=== PATIENT | female | born 1955 | race Caucasian/White ===

== ENCOUNTER 2016-09-30 10:48 | Inpatient (IN) | payer MEDICARE, OTHER ==
--- NOTE | ~2016-09-30 | CO ---
Unit #: [id number] #: [id number] Patient: WOJCIECH CHAMBERS [id number] [facility]. [place], [place] [address] [id number] I MR#: [id number] NAME: WOJCIECH CHAMBERS ROOM: 338 Age: 61 Sex: F Admission Date: 09/30/2016 : 1955 Attending Physician: Mark Aragon M.D. Primary Care Physician: Mark Aragon M.D. Consultation Date: 10/01/2016 CONSULTATION REPORT HISTORY OF PRESENT ILLNESS Ms. Chambers is a 61-year-old white female, who is a normal patient of Dr. Davian Landis. She was admitted on this occasion for anemia and transfusion. She is an end-stage renal patient and is followed by Dr. June. She has had significant chronic obstructive pulmonary disease in the past, but is fairly well compensated at this time. She reports no hemoptysis, hoarseness, weight loss, or sputum production. PAST MEDICAL HISTORY Significant for end-stage renal failure, severe left ventricular dysfunction, mitral regurgitation, hypertension, hyperlipidemia, pulmonary hypertension, chronic obstructive pulmonary disease, and obstructive sleep apnea. PAST SURGICAL HISTORY She has had cataracts, tonsillectomy, hysterectomy, bilateral knee replacements, and left AV shunt. SOCIAL HISTORY She does have a positive smoking history, but does not drink or use illicit substances. ALLERGIES She has allergies to penicillin, prednisone, Actos, Niaspan, Pravachol, Prevacid, glipizide, Lescol, Lipitor, Relafen, Welchol, Zocor, and Fosamax. MEDICATIONS Current home medications are not listed at this time. REVIEW OF SYSTEMS Significant for shortness of breath, but no chest pain, nausea, vomiting, or syncope. PHYSICAL EXAMINATION GENERAL: She is in no acute distress. She appears extremely weak and chronically ill. VITAL SIGNS: Her blood pressure is 105/61, pulse 108, and room air sats are 93%. HEAD AND NECK: Significant for pale mucous membranes. Pupils are round and reactive to light. Sclerae nonicteric. There is no supraclavicular or cervical adenopathy. Trachea is midline. Thyroid is small. CHEST: Shows increased AP diameter with bilateral rales. CARDIAC: There is systolic murmur with regular rate and rhythm. ABDOMEN: Soft, nontender, and nondistended. Unit #: [id number] #: [id number] Patient: WOJCIECH CHAMBERS EXTREMITIES: Showed edema. Joints were not inflamed or swollen. There is no significant rashes on the skin or ulceration. NEUROLOGIC: She is awake, alert, and oriented and showed no gross focal neurologic defects. DIAGNOSTIC STUDIES LABORATORY RESULTS: Her white count was 5.4, hemoglobin 6.3, and hematocrit 19. Sodium 136, potassium 4.3, chloride 100, CO2 of 28, glucose 104, BUN of 36, creatinine 3.5. IMAGING STUDIES: Chest x-ray is pending at this time. IMPRESSION AND PLAN Fairly well-compensated chronic obstructive pulmonary disease. We will plan on checking an x-ray. Providing inhaled bronchodilators and supplemental oxygen. The patient will be followed by Dr. Landis on 10/02/2016. Thank you very much for allowing us to participate in the care. Dictated by... Aj Milner/ailyn TD: 10/01/2016 18:03 JOB #: [id number] CONSULTATION REPORT Page 1 of 1 X Gagandeep Solorio MD X CONSULTATION REPORT
--- NOTE | ~2016-09-30 | HP ---
Unit #: [id number] #: [id number] Patient: WOJCIECH JIANG [id number] [place], [place] [address] [id number] I MR#: [id number] NAME: WOJCIECH JIANG ROOM: 78909 Age: 61 Sex: F Admission Date: 09/30/2016 : 1955 Attending Physician: Mark Aragon M.D. Primary Care Physician: Mark Aragon M.D. HISTORY AND PHYSICAL HISTORY OF PRESENT ILLNESS The patient is a 61-year-old white female with a history of type one diabetes mellitus, hypertension, hyperlipidemia, coronary artery disease, COPD, AFib, anticoagulation, end-stage renal disease on hemodialysis Sunday, Sunday and Sunday. Apparently, at hemodialysis, she was noted to have a protime of over 12 on 09/25/16 and her Coumadin was held. She then presented to my office this morning, complained of being cold, weak, was obviously quite pale, having black tarry stools. Protime in the office was over 6 and she was directed to the hospital thinking she need to have a STAT CBC and possible transfusion. Sure enough here, her hemoglobin was 5.2. She has been typed, crossed and matched for two units, given vitamin K IM and Protonix 80 mg IV and is being admitted for further evaluation. The patient has upper epigastric pain and nausea which is chronic for the patient. She has had no vomiting. I am unsure when her last colonoscopy was. We had referred her late last year but she apparently never had it performed. She is on no NSAIDs at home. Obviously, with her chronic kidney disease, she is on, of course as mentioned above, the warfarin. I am not sure if the warfarin toxicity started the ball of wax or is a result of her poor appetite and diarrhea but, in any case, both need to be addressed and she is being admitted for same. PAST MEDICAL HISTORY End-stage renal disease on hemodialysis Sunday, Sunday and Sunday per Dr. 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 PAST SURGICAL HISTORY Bilateral cataracts, tonsillectomy, partial hysterectomy, bilateral knee replacements, left AV shunt. SOCIAL HISTORY Prior smoker, nondrinker, disabled, no street drug use, . ALLERGIES Penicillin, prednisone, Actos, Niaspan, Pravachol, Prevacid, glipizide, Lescol, Lipitor, Relafen, Welchol, Zocor, Fosamax. MEDICATIONS PRIOR TO ADMISSION Unknown. PHYSICAL EXAMINATION Unit #: [id number] #: [id number] Patient: WOJCIECH JIANG GENERAL APPEARANCE: She is awake, alert, oriented x3, in no acute distress. VITAL SIGNS: Afebrile. Pulse 108. Blood pressure 105/61. Respirations 20. Room air O2 sat 93%. HEENT: Unremarkable except for pale mucous membranes. NECK: Supple without JVD, bruits, adenopathy or thyromegaly. CHEST: Clear to auscultation. Diffusely decreased breath sounds. HEART: Regular rate and rhythm without any murmurs, rubs or gallops. ABDOMEN: Soft, nondistended, tender in the epigastrium without any guarding or rebound tenderness and no hepatosplenomegaly. EXTREMITIES: Trace bilateral lower extremity edema. GENITOURINARY: Deferred. RECTAL: Deferred. NEUROLOGIC: Exam is grossly intact. DIAGNOSTIC STUDIES LABORATORY: CMP is normal except for a sodium of 134. Random blood sugar 149. BUN 28, creatinine 2.7, GFR 18, total protein 5, albumin 2.8. INR 6.7, PTT 51.9. CBC shows white count 7.5, hemoglobin 5.2, platelet count 110,000. IMPRESSION 1. GI bleed. 2. Coumadin toxicity. 3. Acute on chronic anemia. 4. End-stage renal disease on hemodialysis. 5. Left upper extremity AV fistula. 6. Paroxysmal atrial fibrillation. 7. Mitral regurgitation. 8. Left ventricular dysfunction. 9. Thrombocytopenia. 10. Coronary artery disease. 11. COPD. 12. 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 PLAN Vitamin K, FFP, transfuse to hemoglobin above 8, consult GI, IV Protonix, SCDs for DVT prophylaxis, recheck hemoglobin after transfusion. We will consult Dr. June. Further evaluation pending the results of the above. Dictated by Mark Aragon M.D. RYAN/mike TD: 09/30/2016 15:43 JOB #: [id number] Unit #: [id number] #: [id number] Patient: WOJCIECH JIANG HISTORY AND PHYSICAL Page 1 of 1 X Mark Aragon MD X HISTORY AND PHYSICAL
--- NOTE | ~2016-09-30 | OR ---
Unit #: [id number] #: [id number] Patient: WOJCIECH JIANG [id number] [facility]. [place], [place] [address] [id number] I MR#: [id number] NAME: WOJCIECH JIANG ROOM: 338 Date of Procedure: 10/02/2016 Admission Date: 09/30/2016 Surgeon: Skip Pimentel M.D. : 1955 Attending Physician: Mark Aragon M.D. Primary Care Physician: Mark Aragon M.D. OPERATIVE REPORT PREOPERATIVE DIAGNOSES 1. Anemia of gastrointestinal blood loss. 2. End-stage renal disease, on hemodialysis. 3. Coumadin toxicity. PROCEDURES PERFORMED Upper gastrointestinal endoscopy as well as colonoscopy. POSTOPERATIVE DIAGNOSIS 1. For upper endoscopy, completely normal examination up to third part of duodenum. 2. For colonoscopy, the examination was quite difficult and challenging with severe sigmoid diverticulosis that made examination extremely challenging. The procedure was accomplished finally with a pediatric upper GI scope up to the mid ascending colon without cecal intubation being possible. The examination throughout was normal except for severe sigmoid diverticulosis. RECOMMENDATIONS The patient is too frail for any additional intervention. Her anemia is from renal disease and it should be managed with combination of blood transfusions and Procrit as needed. Also keep the INR at the lower end of the therapeutic window or therapeutic range. SEDATION USED MAC. DESCRIPTION OF PROCEDURE Following detailed explanation of potential risks and complications of an upper endoscopy and a colonoscopy, namely perforation, bleeding, and complications related to sedation, the patient was brought to GI lab and laid in the left lateral decubitus position. Lubricated tip of the Olympus video upper endoscope was passed through the bite block into the proximal esophagus under direct vision. The entire esophageal mucosa was examined and appeared normal. Z-line was nicely demarcated, there being no esophagitis or hiatus hernia. The scope was then advanced into the gastric cavity and the latter was insufflated. Mucosa of the fundus, body, and antrum was examined and appeared unremarkable. Pylorus was intubated with visualization of normal duodenal bulb and second and third part of the duodenum. Upon withdrawal and retroflexion, incisura, cardia, and greater curve examined and no additional findings noted. The scope was then withdrawn in the distal esophagus. The entire esophageal mucosa Unit #: [id number] #: [id number] Patient: WOJCIECH JIANG was examined all the way up to pharynx. No additional findings noted. The examination table was then turned by 180 degrees and the patient positioned for a colonoscopy. A digital rectal examination was performed, which was normal. Lubricated tip of the Olympus video colonoscope was inserted through the anus and advanced under direct vision. The scope was advanced and past rectum into the sigmoid colon. Severe and localized sigmoid diverticulosis was noticed. This made the examination extremely challenging with acute angulation, also inability of the patient to keep air and constantly have lot of spasm made the examination quite difficult. After about 8 to 10 minutes of perseveration, the scope was withdrawn and switched with a pediatric upper GI scope. Again after significant difficulty, the scope was advanced past the sigmoid into the descending colon. Once the scope was advanced in the descending colon, proximal insertion was easier. The scope tip was then navigated all the way up to the area of the mid ascending colon. The scope was advanced into the mid ascending colon. However, total cecal intubation was impossible with the pediatric upper GI scope despite positioning the patient and abdominal manipulation. Successive segments of the colonic mucosa were examined upon withdrawal and appeared unremarkable. There being no polyps, mass lesions, or AVMs. Other than the sigmoid diverticula, no other abnormalities noted. The scope was then withdrawn. The patient returned to the recovery area. She tolerated the procedure without any postprocedure complications. Dictated by... Aj Valerio/ailyn TD: 10/03/2016 23:44 JOB #: [id number] OPERATIVE REPORT Page 1 of 1 X Skip Pimentel MD X PROCEDURE OPERATIVE NOTE
--- NOTE | ~2016-09-30 | CO ---
Unit #: [id number] #: [id number] Patient: WOJCIECH CHAMBERS [id number] [facility]. [place], [place] [address] [id number] I MR#: [id number] NAME: WOJCIECH CHAMBERS ROOM: 338 Age: 61 Sex: F Admission Date: 09/30/2016 : 1955 Attending Physician: Mark Aragon M.D. Primary Care Physician: Mark Aragon M.D. Consultation Date: 10/01/2016 CONSULTATION REPORT REASON FOR CONSULTATION Severe anemia with hemoglobin of 5.2. HISTORY OF PRESENT ILLNESS Ms. Chambers is a very frail, petite, 61-year-old white female. The patient is admitted with severe anemia with a hemoglobin of 5.2 and Coumadin toxicity. She reports a history of about a month of intermittent black tarry stools, occasional nausea and upper abdominal discomfort. Her appetite has been poor and she has lost 30 to 40 pounds in the past 3 months and she attributes this to the fact that she has poor dentition. She has longstanding history of end-stage renal disease, on hemodialysis for about 9 years. The patient was found to be Coumadin toxic at a Hemodialysis Center. She also mentions history of feeling extremely fatigued and tired. PAST MEDICAL HISTORY Significant for end-stage renal disease, on hemodialysis 3 days a week. She has type 1 diabetes, peripheral neuropathy, and retinopathy as well as coronary artery disease, atrial fibrillation, with long-term anticoagulation with Coumadin, history of hypertension, COPD, obstructive sleep apnea, severe pulmonary hypertension, severe mitral regurgitation, and left ventricular dysfunction. PAST SURGICAL HISTORY Included a partial hysterectomy, tonsillectomy, cataract removal surgery, bilateral knee replacements, and arteriovenous shunt for hemodialysis. HOME MEDICATIONS Include Coumadin and multitude of other medications including nonsteroidals and she does take also NSAIDs. In the hospital, she has been started on Protonix, Klonopin, Combivent, Claritin, vitamin D, Nephrocaps, Lopressor, Cordarone, Renagel, Proventil HFA, [place] nasal spray as well as hydrocodone/acetaminophen, melatonin, Levemir, NovoLog and Zofran. ALLERGIES Include penicillin, prednisone, Actos, Niaspan, Pravachol, Prevacid, glipizide, Lescol, Lipitor, Relafen, Welchol, Zocor and Fosamax. SOCIAL HISTORY The patient lives at home with the family and does not smoke or drink alcohol. Does not use any recreational drugs. Unit #: [id number] #: [id number] Patient: WOJCIECH CHAMBERS FAMILY HISTORY None of colon, pancreatic cancer, or liver disease. REVIEW OF SYSTEMS Detailed review of organ systems does reveal the patient having lost about 30 pounds over the past several months. There is no history of fever, chills, or rigors. There is a history of extreme fatigue and lethargy. There is a history of possibly melena. No history of vomiting, but history of nausea and poor appetite. No history of headache, seizures, chest pain, or syncope. No history of cough, expectoration, or hemoptysis. No history of dysuria, hematuria, or pyuria. No history of focal seizures. No focal extremity weakness. PHYSICAL EXAMINATION GENERAL: She is awake, alert, and oriented, appears profoundly pale, lethargic. VITAL SIGNS: Temperature 97.5, pulse is 68 per minute and regular, respiratory rate is 18, blood pressure 118/84. HEENT: Besides pallor, there is no icterus, lymphadenopathy and she has grade 1 to 2 pitting peripheral edema. CARDIOVASCULAR: Normal heart sounds. LUNGS: With auscultation, the lungs reveal normal breath sounds and good air entry. ABDOMEN: Soft and nontender. Liver and spleen are not palpable. Bowel sounds normal. DIAGNOSTIC STUDIES LABORATORY RESULTS: Shows a hemoglobin of 6.3 after 2 units of packed cells, platelet count is 86. INR was 6.7 yesterday and 1.5 today after the patient is being given FFPs. Her LFTs are normal. BNP in 04/2015 was about 5000. Serum albumin is 2.8. CLINICAL IMPRESSION 1. The patient has severe symptomatic anemia with normochromic, normocytic red cell indices. This is probably multifactorial etiology, possibly from gastrointestinal blood loss and possibly from renal disease. 2. Underlying thrombocytopenia also seems to be chronic. 3. End-stage renal disease, on hemodialysis. 4. Atrial fibrillation, on long-term anticoagulation with Coumadin toxicity with current INR of 1.5, but admission INR was 6.7. 5. Underlying chronic obstructive pulmonary disease, obstructive sleep apnea, severe pulmonary hypertension, severe mitral regurgitation, and severe left ventricular dysfunction. The patient clearly has extremely high surgical risk as well as high risk for procedures such as upper endoscopy and a colonoscopy. However, we need these 2 to ensure there is no potential source of blood loss as the patient is on long-term Coumadin. It will be quite a challenge for Ms. Chambers to prep for colonoscopy with NuLYTELY or GoLYTELY prep as this is the only safe prep that she can take because of underlying renal disease. The procedures to be done tomorrow after the prep. The purpose of the test is to look for any angiodysplasias, colorectal neoplasia and ulcer disease in the upper gastrointestinal tract. The pros and cons of procedure, potential risks, and complications were discussed the patient and her who was at the bedside. Thank you very much for asking me to see this pleasant woman. I appreciate the consult. Unit #: [id number] #: [id number] Patient: WOJCIECH CHAMBERS SHELLY Dictated by... Aj Valerio/ailyn TD: 10/04/2016 06:28 JOB #: [id number] CC: Mark Aragon M.D. CONSULTATION REPORT Page 1 of 1 X Skip Pimentel MD X CONSULTATION REPORT
--- NOTE | ~2016-09-30 | CR63 ---
[facility] A Service of [facility] & [facility] RADIOLOGY TEXT RESULTS PATIENT: WOJCIECH JIANG LOCATION: [facility] 338- : [birth year] UNIT #: [id number] AGE: [address]: Mark Aragon MD SEX: F ORDER DR: [id number] [facility] [address] [place], [place] [address] [id number] I MR#: [id number] Acc #: [id number] NAME: WOJCIECH JIANG : 1955 SEX: F STUDY DATE/TIME: 10/01/2016 12:40 UNIT: [address] ROOM: [facility] STUDY DESCRIPTION: CR Chest 2 View Attending Physician: Mark Aragon M.D. Ordering Physician: Gagandeep Solorio M.D. Primary Care Physician: Mark Aragon M.D. MEDICAL IMAGING REPORT This report is preliminary unless electronic signature is present EXAM AP and lateral chest HISTORY Shortness of air and chest pain for 3 days. FINDINGS Two views of the chest demonstrate small bilateral pleural effusions. Moderate cardiac enlargement and mild vascular congestion. Thbe-[id number] diffuse bilateral interstitial prominence could be secondary to interstitial edema or interstitial scarring, or a combination of both. No focal airspace consolidation. Right arm approach PICC tip is at the level of the mid right subclavian vein. Right-sided dual-lumen catheter extends into the right atrium. Dictated by... Dylon Naylor M.D. THIS IS AN ELECTRONICALLY VERIFIED REPORT Dylon Naylor M.D. at 10/01/2016 10:14 PM DFL/sylwia TD: 10/01/2016 20:12 JOB #: [id number] MEDICAL IMAGING REPORT Page 1 of 1 COPY
--- NOTE | ~2016-09-30 | CO ---
Unit #: [id number] #: [id number] Patient: WOJCIECH JIANG [id number] [facility]. [place], [place] [address] [id number] MR#: [id number] NAME: WOJCIECH JIANG ROOM: 338 Age: 61 Sex: F Admission Date: 09/30/2016 : 1955 Attending Physician: Mark Aragon M.D. Primary Care Physician: Mark Aragon M.D. Consultation Date: 10/01/2016 CONSULTATION REPORT DICTATED FOR Skip Pimentel M.D. PRIMARY CARE PHYSICIAN Mark Aragon M.D. REASON FOR CONSULT Anemia and GI bleed. HISTORY OF PRESENT ILLNESS The patient is a 61-year-old white female with history of diabetes; hypertension; hyperlipidemia; coronary artery disease; COPD; AFib, on chronic anticoagulation; end-stage renal disease, on hemodialysis. The patient initially presented to Dr. Aragon's office with complaint of increasing weakness, fatigue, and subsequently sent to the hospital for laboratory workup. The patient was noted to have a hemoglobin of 5.2 and INR of 6.7. Several days prior, the patient had INR of 12 and Coumadin had been held since the patient reports intermittent black tarry stools for the past month associated with occasional nausea and upper abdominal discomfort. She also states she has lost about 30 to 40 pounds over the past 3 or 4 months due to dental issues and not being able to eat regular food. There is no history of fever, chills, chest pain, syncope, change in bowel habits. PAST MEDICAL HISTORY End-stage renal disease, on hemodialysis; type 1 diabetes; coronary artery disease, severe left ventricular dysfunction, severe mitral regurgitation; hypertension; hyperlipidemia; pulmonary hypertension; COPD; obstructive sleep apnea. PAST SURGICAL HISTORY Bilateral cataracts, tonsillectomy, partial hysterectomy, bilateral knee replacements, and left AV shunt. SOCIAL HISTORY The patient is . She lives at home with her . She is a reformed smoker. Denies alcohol and illicit drug use. ALLERGIES Penicillin, prednisone, Actos, Niaspan, Pravachol, Prevacid, glipizide, Lescol, Lipitor, Relafen, Zocor, and Fosamax. HOME MEDICATIONS Amiodarone, Combivent, Coumadin, Lorcet, Klonopin, insulin, Lopressor, Unit #: [id number] #: [id number] Patient: WOJCIECH JIANG SHELLY melatonin, ProAir, Zantac, Zyrtec, probiotic, renal vitamin, Renvela, and vitamin D. REVIEW OF SYSTEMS Detailed review of system was done. Only positive findings are as noted in HPI. The rest of the review of system is negative. PHYSICAL EXAMINATION GENERAL: The patient is a 61-year-old female, who appears frail and chronically ill. The patient is awake, alert, oriented, in no acute distress. VITAL SIGNS: Stable with temperature 97.5, blood pressure 118/84, heart rate 68, respirations 18. HEENT: The patient does have moderate pallor. No scleral icterus. No lymphadenopathy. No peripheral edema. CARDIOVASCULAR: Regular rate and rhythm. No murmurs. LUNGS: Decreased breath sounds bilaterally. ABDOMEN: Soft, nontender. Liver and spleen not palpable. Bowel sounds are normal. DIAGNOSTIC STUDIES LABORATORY RESULTS: BMP notable for BUN 37, creatinine 3.5. INR of 1.5, which is down from 6.7 on admission. CBC is normal. WBC 5.4, hemoglobin is 6.3, status post 2 units of packed red blood cells, normal red cell indices, platelets 86. ASSESSMENT 1. Anemia most likely acute upper gastrointestinal bleed. 2. Thrombocytopenia. 3. End-stage renal disease, on hemodialysis. 4. Chronic obstructive pulmonary disease. 5. Atrial fibrillation, on anticoagulation. 6. Coumadin toxicity. PLAN The patient has had a precipitous drop in hemoglobin most likely in this case upper GI bleed. We will recommend an upper GI endoscopy and colonoscopy to rule out potential sources of GI bleed. Packed red blood cells are currently being transfused. We will continue to monitor hemoglobin and transfuse as needed. The patient and plan of care discussed in detail with Dr. Pimentel. Further recommendations to follow. Thank you very much for asking us to see this patient. We appreciate the consult. Dictated by..MADHURI Caputo/ailyn TD: 10/04/2016 08:28 JOB #: [id number] CC: Mark Aragon M.D. Unit #: [id number] #: [id number] Patient: WOJCIECH JIANG CONSULTATION REPORT Page 1 of 1 X X CONSULTATION REPORT
--- NOTE | ~2016-09-30 | DS ---
Unit #: [id number] #: [id number] Patient: WOJCIECH JIANG [id number] [address] [place], [place] [address] [id number] I MR#: [id number] NAME: WOJCIECH JIANG ROOM: 338 Age: 61 Sex: F Admission Date: 09/30/2016 : 1955 Discharge Date: 10/04/2016 Attending Physician: Mark Aragon M.D. Primary Care Physician: Mark Aragon M.D. DISCHARGE SUMMARY PRINCIPAL DISCHARGE DIAGNOSES 1. Gastrointestinal bleed. 2. Acute on chronic anemia. 3. Coumadin toxicity. 4. End-stage renal disease on hemodialysis. 5. Chronic atrial fibrillation. 6. Coronary artery disease. 7. Chronic obstructive pulmonary disease. 8. Type 1 diabetes mellitus. 9. Left ventricular dysfunction. 10. Thrombocytopenia. 11. Mitral regurgitation. PROCEDURE 1. Transfusion 2 units packed RBCs, 09/30/16. 2. Transfusion 2 units FFP, 09/30/16. 3. PICC line placement, 09/30/16. 4. Transfusion 2 units packed RBCs, 10/01/16. 5. EGD and colonoscopy, 10/02/16. CONSULTANTS Dr. Celso Pimentel REASON FOR HOSPITALIZATION The patient is a 61-year-old white female with chronic Afib, type 1 diabetes mellitus, COPD, end-stage renal disease on hemodialysis, anticoagulated and elevated pro-time on the . Coumadin was held. She then began having rectal bleeding and melena, became weak and PT/INR were repeated. On the was 7.7, hemoglobin 5.2, and the patient was admitted. HOSPITAL COURSE The patient was admitted to telemetry bed. She was given transfusion of 2 units of packed RBCs, FFP and vitamin K for reversal of her anticoagulation. She was given a bolus of Protonix and then started on a drip. Nephrology and GI services were consulted and a PICC line was placed for IV access. She quickly improved. Hemoglobin the following day was 6.3 and she was given 2 more units. She underwent EGD and colonoscopy on the , and was essentially normal. She also had hemodialysis later on 10/02/16, and today 10/04/16, her hemoglobin this morning was 9.3. HIT antibodies were checked because of thrombocytopenia and were negative. She appears to be stable for discharge. She will be discharged home after dialysis today. Pro-time yesterday was 1.1, for some reason was not done Unit #: [id number] #: [id number] Patient: WOJCIECH JIANG this morning. Her Coumadin will be held for a week and if her hemoglobin is stable, it will be resumed. Her current platelet count is 97,000. She is being discharged home on a constant carb healthy heart diet. Her current meds: Pro-Air 1 puff q.6 hours p.r.n., Combivent inhaler p.r.n., amiodarone 200 mg daily. Again, her Coumadin is being held. She is on Zyrtec 10 mg daily. Klonopin 0.5 mg q.h.s. Lopressor 50 mg p.o. daily, Lantus 10 units subcu q.h.s. Lotronex 1 mg p.o. daily, Zantac 150 mg p.o. b.i.d., melatonin 10 mg q.h.s., Lorcet 5/325 one q.6 hours p.r.n. for pain, Probiotic 1 p.o. daily, Renvela 1600 mg p.o. t.i.d., [place] nasal spray p.r.n., renal vitamins 1 p.o. daily, vitamin D 1000 units p.o. daily. Dictated by... Aj Dodd/neda TD: 10/04/2016 19:32 JOB #: [id number] DISCHARGE SUMMARY Page 1 of 1 X Mark Aragon MD X DISCHARGE SUMMARY
--- NOTE | ~2016-09-30 | CO ---
Unit #: [id number] #: [id number] Patient: ROSEANNA CHAMBERS [id number] [address] [place], [place] [address] [id number] I MR#: [id number] NAME: ROSEANNA CHAMBERS ROOM: 338 Age: 61 Sex: F Admission Date: 09/30/2016 : 1955 Attending Physician: Mark Aragon M.D. Primary Care Physician: Mark Aragon M.D. Consultation Date: 09/30/2016 CONSULTATION REPORT REASON FOR CONSULTATION End-stage renal disease. Thank you very much for asking me to see this patient in consultation. HISTORY OF PRESENT ILLNESS Ms. Roseanna Chambers is a 61-year-old female, with history of end-stage renal disease, on hemodialysis every Sunday, Sunday, and Sunday with her dialysis last being yesterday, who apparently was placed on antibiotics approximately 2 weeks ago by [facility], although she states her Coumadin level was not adjusted at that time, but could not tell me which antibiotic. She subsequently was noted to have an increased INR of 12 on Sunday. At which time, I received a phone call, my first question to the nurse is as she had any type of bleeding at all and the answer was no. I instructed her to recheck it, and if she has any type of bleeding at all to let her know to come to the emergency room. She presents here now with a hemoglobin of 5.2 and an INR of 6.7. In retrospect talking to her she states she has had blood in her stool, dark bloody stools anywhere from 2 months to 2 weeks depending on who she has told the story to. She does state she has had some increased shortness of breath over the last several days and she is having some epigastric pain intermittently as well. She denies any fevers or chills. No significant nausea or vomiting. PAST MEDICAL HISTORY History of end-stage renal disease as mentioned above, history of COPD, history of pulmonary hypertension, history of mitral regurgitation, history of atrial fibrillation on Coumadin, history of diabetes mellitus, history of anemia, history of atherosclerotic coronary artery disease, history of hyperlipidemia. ALLERGIES Multiple drug allergy, see list. SOCIAL HISTORY She was a previous smoker, not for 4 to 5 years. No alcohol. She is . MEDICATIONS AT HOME Include amiodarone 200 mg a day, Combivent inhaler, Coumadin 2 mg a day, Lorcet p.r.n., Klonopin 0.5 mg before dialysis and 1 mg at night for restless legs, insulin, Lopressor 50 mg a day, melatonin at night, ProAir, Zantac 150 mg b.i.d., Zyrtec 10 mg a day, probiotic daily, renal vitamin daily, Renvela 1600 mg p.o. t.i.d. with meals, vitamin D 1000 units daily. Unit #: [id number] #: [id number] Patient: ROSEANNA CHAMBERS REVIEW OF SYSTEMS As mentioned in the HPI, otherwise negative. PHYSICAL EXAMINATION GENERAL: She is alert and oriented, in no acute distress currently. VITAL SIGNS: Temperature is 97.9, pulse 108, blood pressure 105/61, room air saturation is 93%. HEENT: She is normocephalic and atraumatic. Pupils are equal, round, and reactive to light. Extraocular muscles are intact. Hearing appears to be normal. Mouth is clear. No erythema. No exudate. NECK: Supple. No adenopathy. CARDIAC: She is without a rub. No S3 or S4. LUNGS: Sound fairly clear today. No wheezes, rhonchi, or rales. ABDOMEN: Bowel sounds positive. Mild epigastric discomfort. Diffuse tenderness. No rebound or guarding. EXTREMITIES: She has no significant lower extremity swelling. Her pulses are intact in the lower extremities. JOINTS: No joint pain or joint swelling. SKIN: No acute rashes. She has a tunneled catheter in her upper chest. : Deferred. DIAGNOSTIC STUDIES LABORATORY RESULTS: Shows sodium 134, potassium 3.7, chloride 100, bicarb is 28, BUN and creatinine are 28 and 2.7, glucose of 129, albumin is 2.8. INR is 6.7. Hemoglobin is 5.2, white count 7500, and platelets 110,000. ASSESSMENT/PLAN 1. End-stage renal disease. We will plan on hemodialysis on Sunday unless she gets volume overloaded or becomes hyperkalemic. Certainly, no heparin with dialysis uses tunneled catheter. We will follow up with you. 2. History of atrial fibrillation with Coumadin toxicity with gastrointestinal bleed. Again, the patient has been ordered blood, vitamin K, FFP, as well as Protonix drip and GI has been consulted. 3. History of atrial fibrillation, again Coumadin on hold with pulmonary hypertension and mitral regurgitation. 4. Diabetes mellitus. Dictated by.Aj Carias/ailyn TD: 10/01/2016 06:37 JOB #: [id number] CONSULTATION REPORT Page 1 of 1 X Markel June MD X CONSULTATION REPORT
[~2016-09-30 10:48] MED LIST: ADVAIR 250-501 EAC1 IH; ADVAIR 2501 DISK W/1 IH; ANTI-DIARRHEAL2 M1 PO; ASPIRIN81 M2 PO; AZOR 5-20 MG T1 EACH PO; BENICAR20 MG PO; CEFTIN PO; CELEXA20 MG PO; COMBIVENT INH14.7 G1 IH; COMBIVENT MININEB INH; COUMADIN2.5 MG PO; CRESTOR PO; DYMISTA NASAL S23 GM NS; ECOTRIN81 M1 PO; EPOGEN10000 U/ML IJ; FLEXERIL10 MG PO; FOLBEE AR TABL1 EACH PO; FOLIC ACID PO; FOLIC ACID1 MG PO; HYDROCODON-ACE1 EAC7 PO; IMODIUM2 MG PO; LANTUS100 U/ML SQ; LANTUS100 UNITS/ SUBQ; LOPRESSOR PO; LOPRESSOR100 MG PO; LOTREL 10-40 M1 EACH PO; LOVENOX80 MG/0.8 INJ; LUNESTA2 M1 PO; NASONEX17 GM; NITROGLYGERIN0.4 MG SL; NITROSTAT0.4 MG SL; PACERONE PO; PHENERGAN25 M1 PO; PHENERGAN25 MG PO; PHOSLO667 MG PO; PRILOSEC20 M1 PO; PRILOSEC20 MG PO; RENVELA800 MG PO; VITAMIN D31000 UNI1 PO; ZOFRAN ODT4 MG/UDTAB PO; ZOFRANODT PO; ZYRTEC10 M2 PO
[2016-09-30 12:30] LABS: BASOPHIL# 0.1 X10e3 (0-0.3); BASOPHIL% 0.7 % (0-2.5); EOSINOPHIL% 0.6 % (0.0-7.0); HEMATOCRIT 16.1 % (35.0-45.0); LYMPHOCYTE# 0.5 X10e3 (1.0-3.5); MEAN CELL VOLUME 97.5 FL (83-96); MEAN CORPUSCULAR HEMOGLOBIN 31.6 PG (28-34); MEAN CORPUSCULAR HGB CONC 32.4 g/dL (30-36); MEAN PLATELET VOLUME 9.1 FL (6.5-11.5); MONOCYTE# 0.7 X10e3 (0-1.0); MONOCYTE% 9.7 % (3.0-12.0); NEUTROPHIL# 6.2 X10e3 (1.5-7.1); PLATELET COUNT 110 X10e3 (140-420); RED BLOOD COUNT 1.65 X10e (3.90-5.30); RED CELL DISTRIBUTION WIDTH 19.8 % (11.0-15.5); WHITE BLOOD COUNT 7.5 X10e3 (4.0-10.5)
[2016-09-30 12:33] LABS: DIFF IND YES; HEMOGLOBIN 5.2 gm/dL (12.0-16.0)
[2016-09-30 12:47] LABS: PARTIAL THROMBOPLASTIN TIME 51.9 SECONDS (23.5-31.3); PROTHROMBIN TIME (PATIENT) 72.9 SECONDS (10.0-11.7)
[2016-09-30 12:56] LABS: ALBUMIN SERUM 2.8 g/dL (3.5-5.0); BILIRUBIN,TOTAL 0.8 mg/dL (0.2-2.0); BUN/CREATININE RATIO 10.37; CALCIUM SERUM 8.9 mg/dL (8.4-10.2); CREATININE SERUM 2.7 mg/dL (0.6-1.4); POTASSIUM 3.7 mmol/L (3.5-5.1)
[2016-09-30 13:02] LABS: INR 6.7
[2016-09-30 13:18] LABS: ANISOCYTOSIS MOD; HYPOCHROMIA MOD; OVALOCYTES PRESENT; PLATELET ESTIMATE DECREASED (NORMAL); POIKILOCYTOSIS MOD; SCHISTOCYTES PRESENT
[2016-09-30 13:19] LABS: ELLIPTOCYTES PRESENT; ROULEAUX SLIGHT
[2016-09-30] MEDS ORDERED: AMIODARONE HCL200 MG PO (13:48)
[2016-09-30] MEDS ORDERED: COUMADIN PO (13:49)
[2016-09-30] MEDS ORDERED: COMBIVENT U/D3 M2 INH (13:49)
[2016-09-30] MEDS ORDERED: LORCET 5-325 M1 EACH PO (13:50)
[2016-09-30] MEDS ORDERED: LANTUS100 U/ML SUBQ (13:51)
[2016-09-30] MEDS ORDERED: KLONOPIN0.5 MG PO (13:51)
[2016-09-30] MEDS ORDERED: LOTRONEX1 MG PO (13:52)
[2016-09-30] MEDS ORDERED: LOPRESSOR PO (13:52)
[2016-09-30] MEDS ORDERED: MELATONIN10 M2 PO (13:53)
[2016-09-30] MEDS ORDERED: PROAIR HFA8.5 GM INH (13:54)
[2016-09-30] MEDS ORDERED: PROBIOTIC1 EAC4 PO (13:54)
[2016-09-30] MEDS ORDERED: RENAL VITAMIN0.8 MG PO (13:55)
[2016-09-30] MEDS ORDERED: RENVELA800 MG PO (13:55)
[2016-09-30] MEDS ORDERED: SALINE MIST44 ML (13:56)
[2016-09-30] MEDS ORDERED: VITAMIN D1000 UNI2 PO (13:57)
[2016-09-30] MEDS ORDERED: ZANTAC150 M1 PO (13:57)
[2016-09-30] MEDS ORDERED: ZYRTEC10 M2 PO (13:57)
[2016-10-01 06:27] LABS: INR 1.5
[2016-10-01 06:39] LABS: BASOPHIL# 0.1 X10e3 (0-0.3); BASOPHIL% 1.1 % (0-2.5); EOSINOPHIL# 0.1 X10e3 (0-0.7); EOSINOPHIL% 1.2 % (0.0-7.0); HEMATOCRIT 19.1 % (35.0-45.0); LYMPHOCYTE# 0.6 X10e3 (1.0-3.5); LYMPHOCYTE% 10.7 % (17.0-45.0); MEAN CORPUSCULAR HEMOGLOBIN 31.1 PG (28-34); MEAN PLATELET VOLUME 9.2 FL (6.5-11.5); MONOCYTE# 0.6 X10e3 (0-1.0); MONOCYTE% 10.9 % (3.0-12.0); NEUTROPHIL# 4.1 X10e3 (1.5-7.1); NEUTROPHIL% 76.1 % (40-75); RED BLOOD COUNT 2.02 X10e (3.90-5.30); RED CELL DISTRIBUTION WIDTH 18.4 % (11.0-15.5); WHITE BLOOD COUNT 5.4 X10e3 (4.0-10.5)
[2016-10-01 06:48] LABS: HEMOGLOBIN 6.3 gm/dL (12.0-16.0); MEAN CELL VOLUME 94.2 FL (83-96)
[2016-10-01 07:02] LABS: BUN/CREATININE RATIO 10.57; CALCIUM SERUM 9.4 mg/dL (8.4-10.2); CREATININE SERUM 3.5 mg/dL (0.6-1.4); GLOM FILT RATE Estimated 13.2 mL/min (>60); POTASSIUM 4.3 mmol/L (3.5-5.1)
[2016-10-01 07:19] LABS: DIFF IND NO; PLATELET COUNT 86 X10e3 (140-420)
[2016-10-01 18:29] LABS: BASOPHIL% 0.7 % (0-2.5); EOSINOPHIL% 0.7 % (0.0-7.0); HEMOGLOBIN 9.2 gm/dL (12.0-16.0); LYMPHOCYTE# 0.5 X10e3 (1.0-3.5); LYMPHOCYTE% 8.2 % (17.0-45.0); MEAN CELL VOLUME 93.1 FL (83-96); MEAN CORPUSCULAR HEMOGLOBIN 30.7 PG (28-34); MEAN PLATELET VOLUME 9.3 FL (6.5-11.5); MONOCYTE# 0.7 X10e3 (0-1.0); MONOCYTE% 10.3 % (3.0-12.0); NEUTROPHIL# 5.1 X10e3 (1.5-7.1); NEUTROPHIL% 80.1 % (40-75); PLATELET COUNT 94 X10e3 (140-420); RED BLOOD COUNT 3.01 X10e (3.90-5.30); RED CELL DISTRIBUTION WIDTH 17.2 % (11.0-15.5); WHITE BLOOD COUNT 6.4 X10e3 (4.0-10.5)
[2016-10-01 18:31] LABS: DIFF IND NO
[2016-10-02 09:16] LABS: HEMATOCRIT 28.1 % (35.0-45.0); HEMOGLOBIN 9.3 gm/dL (12.0-16.0); MEAN CELL VOLUME 94.1 FL (83-96); MEAN CORPUSCULAR HGB CONC 32.9 g/dL (30-36); MEAN PLATELET VOLUME 9.7 FL (6.5-11.5); RED BLOOD COUNT 2.99 X10e (3.90-5.30); RED CELL DISTRIBUTION WIDTH 17.4 % (11.0-15.5); WHITE BLOOD COUNT 7.4 X10e3 (4.0-10.5)
[2016-10-02 09:26] LABS: INR 1.1; PROTHROMBIN TIME (PATIENT) 12.2 SECONDS (10.0-11.7)
[2016-10-02 09:49] LABS: BUN/CREATININE RATIO 9.55; CALCIUM SERUM 9.4 mg/dL (8.4-10.2); CREATININE SERUM 4.5 mg/dL (0.6-1.4); GLOM FILT RATE Estimated 9.7 mL/min (>60); POTASSIUM 4.5 mmol/L (3.5-5.1)
[2016-10-03 05:38] LABS: BASOPHIL% 0.4 % (0-2.5); EOSINOPHIL% 0.9 % (0.0-7.0); HEMATOCRIT 25.6 % (35.0-45.0); HEMOGLOBIN 8.4 gm/dL (12.0-16.0); LYMPHOCYTE# 0.4 X10e3 (1.0-3.5); LYMPHOCYTE% 6.6 % (17.0-45.0); MEAN CELL VOLUME 93.8 FL (83-96); MEAN CORPUSCULAR HEMOGLOBIN 30.8 PG (28-34); MEAN CORPUSCULAR HGB CONC 32.8 g/dL (30-36); MEAN PLATELET VOLUME 9.1 FL (6.5-11.5); MONOCYTE# 0.6 X10e3 (0-1.0); MONOCYTE% 11.2 % (3.0-12.0); NEUTROPHIL# 4.5 X10e3 (1.5-7.1); NEUTROPHIL% 80.9 % (40-75); PLATELET COUNT 83 X10e3 (140-420); RED BLOOD COUNT 2.73 X10e (3.90-5.30); RED CELL DISTRIBUTION WIDTH 17.3 % (11.0-15.5); WHITE BLOOD COUNT 5.6 X10e3 (4.0-10.5)
[2016-10-03 05:42] LABS: DIFF IND NO
[2016-10-03 05:50] LABS: INR 1.1
[2016-10-03 06:58] LABS: BUN/CREATININE RATIO 6.12; CALCIUM SERUM 8.8 mg/dL (8.4-10.2); CREATININE SERUM 3.1 mg/dL (0.6-1.4); GLOM FILT RATE Estimated 15.3 mL/min (>60); POTASSIUM 3.6 mmol/L (3.5-5.1)
[2016-10-03 16:05] LABS: HEPARIN INDUCED PLT AB Negative (Negative); UFH HIGH DOSE 100 0 (()); UFH LOW DOSE 0.1 0 (()); UFH LOW DOSE 0.5 0 (())
[2016-10-04 05:50] LABS: BASOPHIL% 0.6 % (0-2.5); EOSINOPHIL# 0.1 X10e3 (0-0.7); EOSINOPHIL% 1.5 % (0.0-7.0); HEMATOCRIT 28.3 % (35.0-45.0); HEMOGLOBIN 9.3 gm/dL (12.0-16.0); LYMPHOCYTE# 0.5 X10e3 (1.0-3.5); MEAN CELL VOLUME 95.5 FL (83-96); MEAN CORPUSCULAR HEMOGLOBIN 31.3 PG (28-34); MEAN CORPUSCULAR HGB CONC 32.8 g/dL (30-36); MEAN PLATELET VOLUME 9.3 FL (6.5-11.5); MONOCYTE# 0.8 X10e3 (0-1.0); MONOCYTE% 12.1 % (3.0-12.0); NEUTROPHIL# 5.1 X10e3 (1.5-7.1); NEUTROPHIL% 78.8 % (40-75); PLATELET COUNT 97 X10e3 (140-420); RED BLOOD COUNT 2.96 X10e (3.90-5.30); RED CELL DISTRIBUTION WIDTH 18.2 % (11.0-15.5); WHITE BLOOD COUNT 6.5 X10e3 (4.0-10.5)
[2016-10-04 05:53] LABS: DIFF IND NO
[2016-10-04 06:31] LABS: BUN/CREATININE RATIO 6.97; CALCIUM SERUM 9.7 mg/dL (8.4-10.2); CREATININE SERUM 4.3 mg/dL (0.6-1.4); GLOM FILT RATE Estimated 10.3 mL/min (>60); POTASSIUM 3.8 mmol/L (3.5-5.1)
[2016-12-27] MEDS ORDERED: SPIRIVA18 MCG INH
[2016-12-27] MEDS ORDERED: NEURONTIN100 MG PO
[2016-12-27] MEDS ORDERED: VANCOMYCIN HCL1 G1 PO (00:02)
[2016-12-27] MEDS ORDERED: MYNEPHRON CAPSUL1 MG PO (00:04)
[2016-12-27] MEDS ORDERED: ALKA-SELTZER G1 EACH PO (23:57)
[2016-12-27] MEDS ORDERED: ACID CONTROLLER20 MG PO (23:59)
[2016-12-27] MEDS ORDERED: FLORANEX GRANU1 EACH PO (23:59)
[2016-12-27] MEDS ORDERED: EPOGEN2000 UNIT/ ID (23:59)
[2016-12-28] MEDS ORDERED: LOTRONEX1 MG PO (15:41)
[2016-12-28] MEDS ORDERED: AMIODARONE HCL200 MG PO (15:42)
[2016-12-28] MEDS ORDERED: LANTUS100 U/ML SUBQ (15:43)
[2016-12-28] MEDS ORDERED: COMBIVENT RESPIM4 GM INH (15:44)
== END 2016-10-04 17:36 | disposition home or self-care (01) | DRG 377 ==
LOC: CED 10:48 → C3A PCU 13:43 → CEDOF 13:43 → CED 14:10 → CEDOF 14:10 → C3A PCU 16:53
PROVIDERS: Emergency Medicine; Internal Medicine; Internal Medicine Gastroenterology; Internal Medicine Nephrology
PROC: 30243L1 Transfusion of Nonautologous Fresh Plasma into Central Vein, Percutaneous Approach (ICD-10-PCS; 2016-09-30)
PROC: 30243N1 Transfusion of Nonautologous Red Blood Cells into Central Vein, Percutaneous Approach (ICD-10-PCS; 2016-09-30)
PROC: 02HV33Z Insertion of Infusion Device into Superior Vena Cava, Percutaneous Approach (ICD-10-PCS; 2016-09-30)
PROC: 5A1D60Z (ICD-10-PCS; 2016-10-02)
PROC: 0DJD8ZZ Inspection of Lower Intestinal Tract, Via Natural or Artificial Opening Endoscopic (ICD-10-PCS; principal; 2016-10-02 19:52)
PROC: 0DJ08ZZ Inspection of Upper Intestinal Tract, Via Natural or Artificial Opening Endoscopic (ICD-10-PCS; 2016-10-02 19:52)
DX: K92.1 Melena (principal); N18.6 End stage renal disease; I12.0 Hypertensive chronic kidney disease with stage 5 chronic kidney disease or end stage renal disease; E10.22 Type 1 diabetes mellitus with diabetic chronic kidney disease; D68.9 Coagulation defect, unspecified; D62 Acute posthemorrhagic anemia; D69.6 Thrombocytopenia, unspecified; Z99.2 Dependence on renal dialysis; Z87.891 Personal history of nicotine dependence; Z79.4 Long term (current) use of insulin; E10.319 Type 1 diabetes mellitus with unspecified diabetic retinopathy without macular edema; T45.515A Adverse effect of anticoagulants, initial encounter; Y92.9 Unspecified place or not applicable; I48.2 Chronic atrial fibrillation; Z79.01 Long term (current) use of anticoagulants; I25.10 Atherosclerotic heart disease of native coronary artery without angina pectoris; J44.9 Chronic obstructive pulmonary disease, unspecified; I34.0 Nonrheumatic mitral (valve) insufficiency; E78.5 Hyperlipidemia, unspecified; G47.33 Obstructive sleep apnea (adult) (pediatric); I27.2 Other secondary pulmonary hypertension; K57.30 Diverticulosis of large intestine without perforation or abscess without bleeding; Z88.8 Allergy status to other drugs, medicaments and biological substances; Z88.0 Allergy status to penicillin; G25.81 Restless legs syndrome
CPT/HCPCS: 36415; 71020; 80048; 80053; 82947; 85025; 85027; 85610; 85730; 86022; 86850; 86900; 86901; 86923; 94640; 94664; 94760; 96372; 96374; 99284; C9113; J1642; J1815; J2405; J2997; J3430; P9016; P9059; Q4081

== ENCOUNTER 2016-10-21 12:48 | Observation (INO) | payer MEDICARE, OTHER ==
--- NOTE | ~2016-10-21 | CO ---
Unit #: [id number] #: [id number] Patient: WOJCIECH CHAMBERS [id number] [place] [address] [facility]. [place], [place] [address] [id number] I MR#: [id number] NAME: WOJCIECH CHAMBERS ROOM: 547 Age: 61 Sex: F Admission Date: 10/21/2016 : 1955 Attending Physician: Bella Sheppard M.D. Primary Care Physician: Mark Aragon M.D. Consultation Date: 10/22/2016 CONSULTATION REPORT HISTORY OF PRESENT ILLNESS Ms. Chambers is a 61-year-old female with multiple chronic medical conditions to include chronic anticoagulation for atrial fibrillation and end-stage renal disease requiring hemodialysis. She recently was hospitalized for lower GI bleeding, but at that time, her INR was supratherapeutic. In September of this year, she underwent EGD and colonoscopy by Dr. Pimentel. Upper endoscopy is unremarkable. On the colonoscopy, however, she had severe pandiverticulosis and no other findings. She represented to the hospital yesterday because she passed a small amount of rectal blood, but was otherwise asymptomatic. At the time of admission, her INR was therapeutic at 2.2. She was hemodynamically stable and her hemoglobin was 11.9. She states she has not passed any further blood since admission. PAST MEDICAL HISTORY Diabetes; hypertension; hyperlipidemia; atherosclerotic coronary artery disease; COPD; atrial fibrillation, on chronic anticoagulation; end-stage renal disease, on hemodialysis Sunday, Sunday, and Sunday under the direction of Dr. Celso June. She has a history of left ventricular dysfunction, severe mitral regurgitation, pulmonary hypertension, obstructive sleep apnea. She has had a previous hysterectomy, bilateral knee replacements, a left AV shunt placement, bilateral cataract excision, and tonsillectomy. ALLERGIES Allergic to penicillin, prednisone, Actos, Niaspan, Pravachol, Prevacid, glipizide, Lescol, Lipitor, Relafen, Zocor, and Fosamax. HOME MEDICATIONS Include amiodarone, Combivent, Coumadin, Lorcet, Klonopin, insulin, Lopressor, melatonin, ProAir, Zantac, Zyrtec, probiotic, renal vitamins, Renvela, and vitamin D. FAMILY HISTORY Diabetes. SOCIAL HISTORY . Lives at home. Former smoker. Denies the current use of alcohol or recreational drugs. REVIEW OF SYSTEMS No melena. No hematemesis. No lightheadedness. No weakness. No dizziness. PHYSICAL EXAMINATION Unit #: [id number] #: [id number] Patient: WOJCIECH CHAMBERS VITAL SIGNS: Temperature is 97.6, pulse 89, respirations 20, blood pressure 142/71. GENERAL: Awake, alert, oriented. HEENT: Unremarkable. NECK: No bruits. CARDIAC: Irregular, but rhythm. LUNGS: Clear. ABDOMEN: Soft. EXTREMITIES: No edema. NEUROLOGIC: Grossly intact. DIAGNOSTIC STUDIES LABORATORY RESULTS: Comprehensive metabolic panel shows BUN and creatinine of 24 and 3.3, electrolytes are normal. Albumin 3.0, total bilirubin 1.3. Liver chemistries unremarkable. INR is 2.2. White count 4200, hemoglobin 11.6, platelets 101,000. ASSESSMENT AND PLAN A 61-year-old female as described. At this time, she is not passing any further blood. She is hemodynamically stable with a normal hemoglobin. At this time, the patient does not need any further intervention. We will follow her hemoglobin and hematocrit over the next 24 hours to make sure it remain stable. However, this patient is always going to be at risk because of her chronic anticoagulation even with a therapeutic INR. The only thing to help prevent future episodes of gastrointestinal bleeding would be a subtotal colectomy, but given her comorbid conditions, she would be at significant risk for such a large operation. In discussing with the patient, she is not particularly interested in undergoing this operation. With ileorectal anastomosis, she would have chronic loose stools and possibly an end ileostomy would be a better choice, but when I discussed an ostomy with the patient, she was not interested. Dictated by... Aj Mercer/ailyn TD: 10/22/2016 23:58 JOB #: [id number] CONSULTATION REPORT Page 1 of 1 X Tien Lou MD CONSULTATION REPORT
--- NOTE | ~2016-10-21 | HP ---
Unit #: [id number] #: [id number] Patient: WOJCIECH JIANG [id number] [address] [place], [place] [address] [id number] I MR#: [id number] NAME: WOJCIECH JIANG ROOM: 547 Age: 61 Sex: F Admission Date: 10/21/2016 : 1955 Attending Physician: Bella Sheppard M.D. Primary Care Physician: Mark Aragon M.D. HISTORY AND PHYSICAL HISTORY OF PRESENT ILLNESS 61-year-old white female with a history of end stage renal disease, on hemodialysis Sunday, Sunday and Sunday, coronary artery disease, chronic A-fib, COPD, CHF, mitral regurgitation, thrombocytopenia, type 1 diabetes mellitus, recent admission with Coumadin toxicity, lower GI bleed, anemia. At that time, she underwent EGD and colonoscopy. Colonoscopy showed elder diverticulosis. EGD was essentially normal. The patient was stabilized and discharged home, eventually started back on her warfarin therapy after being held for a week which is normally prescribed by her fill technician. In any case, she presented back to the emergency room on 10/21/18 with lower GI bleeding. Her protime at that time was therapeutic at 2.2. Hemoglobin was stable at 11.6. Platelets were slightly low at 101,000. When she was last here they were 97,000 and her hemoglobin was 9.3. It should be noted HIT antibodies last admission were negative. In any case, I have discussed it with the patient and Dr. Lou. She was given FFP and vitamin K. A protime and CBC were ordered for this morning but not done. She stopped bleeding. Our only options at this point are total colectomy versus stopping her warfarin therapy. We are all in agreement that it is probably best for her, because of her overall medical condition, to not undergo that long of a major surgery and, if her protime and hemoglobin at stable this morning and she has no further bleeding, she will be discharged home for outpatient followup. ALLERGIES She has stated allergies to penicillin. MEDICATIONS Her meds prior to admission: 1. Amiodarone 200 mg daily. 2. Combivent, one puff q.4 hours. 3. Lorcet 5/325, one q.6 hours p.r.n. 4. Klonopin 0.5 mg q. h.s. 5. Lantus 10 units subcu q. h.s. 6. Lopressor 50 mg p.o. every other day. 7. Lomotil p.r.n. 8. Melatonin 10 mg q. h.s. 9. Probiotics daily. 10. Renvela, 1600 mg t.i.d. 11. Renal vitamins, one cap daily. 12. Vitamin D 1000 units daily. 13. Zantac 150 mg b.i.d. 14. Zyrtec 10 mg daily. 15. Coumadin 2 mg daily. 16. Sensipar 60 mg daily. Unit #: [id number] #: [id number] Patient: WOJCIECH JIANG 17. Zofran 4 mg q.6 hours p.r.n. PAST MEDICAL HISTORY 1. End stage renal disease, on hemodialysis Sunday, Sunday and Sunday. 2. 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 3. Coronary artery disease. 4. Severe left ventricular dysfunction. 5. Severe mitral regurgitation. 6. Hypertension. 7. Hyperlipidemia. 8. Pulmonary hypertension. 9. COPD/obstructive sleep apnea syndrome. SURGICAL HISTORY 1. Tonsillectomy. 2. Partial hysterectomy. 3. Bilateral knee replacements. 4. Left upper extremity AV shunt. 5. Bilateral cataracts. SOCIAL HISTORY . Prior smoker, nondrinker. Disabled. No street drug use. PHYSICAL EXAMINATION GENERAL: She is awake, alert, oriented x3, in no acute distress. VITAL SIGNS: She has remained afebrile. Room air O2 sat in the ER was 88%. Currently, on 2 L which is what she is on at home, it is 100%. She was tachycardic in the ER at 119 but currently it is 89. Respirations are 20, blood pressure 142/71. HEENT: Unremarkable. NECK: Supple without JVD, bruits, adenopathy or thyromegaly. CHEST: Bibasilar rales. HEART: Irregularly irregular with a systolic murmur best appreciated at the apex. ABDOMEN: Soft, nondistended, nontender with positive bowel sounds and no hepatosplenomegaly. EXTREMITIES: No clubbing, cyanosis or edema. /RECTAL: Deferred. NEUROLOGICAL: Grossly intact. DIAGNOSTIC STUDIES LABORATORY: White count 4.2, hemoglobin 11.6, platelets 101,000, BUN 24, creatinine 3.3, GFR 14.1, albumin 3. PT/INR 2.2, PTT 39. IMAGING: Chest x-ray - cardiomegaly. Small bilateral pleural effusions. Mild pulmonary edema. IMPRESSION 1. Recurrent lower gastrointestinal bleed secondary to Coumadin therapy and elder diverticulosis. 2. Anemia. 3. Thrombocytopenia. 4. End stage renal disease, on hemodialysis. 5. Coronary artery disease. 6. Chronic atrial fibrillation. 7. Chronic obstructive pulmonary disease. 8. Left ventricular dysfunction with chronic systolic congestive heart Unit #: [id number] #: [id number] Patient: WOJCIECH JIANG SHELLY failure. 9. Severe mitral regurgitation. 10. 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 PLAN Again, the plan is to reverse her anticoagulation, normalize her protime, stabilize her hemoglobin and then discharge home with outpatient followup. Dictated by Aj Dodd/jamison TD: 10/22/2016 14:29 JOB #: [id number] HISTORY AND PHYSICAL Page 1 of 1 X Mark Aragon MD X HISTORY AND PHYSICAL
--- NOTE | ~2016-10-21 | CR72 ---
[facility] A Service of [facility] RADIOLOGY TEXT RESULTS PATIENT: WOJCIECH JIANG LOCATION: [place] [id number] : [birth year] UNIT #: [id number] AGE: [address]: Bella Sheppard MD SEX: F ORDER DR: [id number] [facility] [address] [place], [place] [address] [id number] I MR#: [id number] Acc #: [id number] NAME: WOJCIECH JIANG : 1955 SEX: F STUDY DATE/TIME: 10/21/2016 13:24 UNIT: [facility] ROOM: [facility] STUDY DESCRIPTION: CR Chest Single View Portable Attending Physician: Bella Sheppard M.D. Ordering Physician: Jamel Nair M.D. Primary Care Physician: Mark Aragon M.D. MEDICAL IMAGING REPORT This report is preliminary unless electronic signature is present EXAM Chest x-ray 10/21/2016 HISTORY 61-year-old female in the ED complaining of dysphagia. Sensation of food sticking in upper chest after eating. She states these symptoms have been present for about 1 year. Upper endoscopy procedure 2 weeks ago. TECHNIQUE AP portable upright chest x-ray. FINDINGS Dialysis catheter in place. Marked cardiomegaly is stable since 10/01/2016. Lyor-jj-esxvzejs diffuse interstitial pulmonary edema with small bilateral pleural effusions, greater on the left. This has increased slightly since the prior exam. There may be some background diffuse chronic interstitial lung disease. No pneumothorax. IMPRESSION 1. Cardiomegaly, diffuse interstitial pulmonary edema and small bilateral pleural effusions. 2. Dialysis catheter. Dictated by... Jayesh Wagner M.D. THIS IS AN ELECTRONICALLY VERIFIED REPORT Jayesh Wagner M.D. at 10/22/2016 12:51 PM RGW/rnr TD: 10/21/2016 23:17 JOB #: [id number] [facility] A Service of [facility] RADIOLOGY TEXT RESULTS PATIENT: WOJCIECH JIANG LOCATION: [facility] 547-01 : [birth year] UNIT #: [id number] AGE: [address]: Bella Sheppard MD SEX: F ORDER DR: MEDICAL IMAGING REPORT Page 1 of 1 COPY
[~2016-10-21 12:48] MED LIST changes: +AMIODARONE HCL200 MG PO; +COMBIVENT U/D3 M2 INH; +COUMADIN PO; +KLONOPIN0.5 MG PO; +LANTUS100 U/ML SUBQ; +LORCET 5-325 M1 EACH PO; +LOTRONEX1 MG PO; +MELATONIN10 M2 PO; +PROAIR HFA8.5 GM INH; +PROBIOTIC1 EAC4 PO; +RENAL VITAMIN0.8 MG PO; +SALINE MIST44 ML; +VITAMIN D1000 UNI2 PO; +ZANTAC150 M1 PO
[2016-10-21 14:07] LABS: BASOPHIL% 1.1 % (0-2.5); EOSINOPHIL% 1.2 % (0.0-7.0); HEMATOCRIT 36.8 % (35.0-45.0); HEMOGLOBIN 11.6 gm/dL (12.0-16.0); LYMPHOCYTE# 0.2 X10e3 (1.0-3.5); LYMPHOCYTE% 5.7 % (17.0-45.0); MEAN CELL VOLUME 96.2 FL (83-96); MEAN CORPUSCULAR HEMOGLOBIN 30.2 PG (28-34); MEAN CORPUSCULAR HGB CONC 31.4 g/dL (30-36); MONOCYTE# 0.4 X10e3 (0-1.0); MONOCYTE% 10.4 % (3.0-12.0); NEUTROPHIL# 3.4 X10e3 (1.5-7.1); NEUTROPHIL% 81.6 % (40-75); PLATELET COUNT 101 X10e3 (140-420); RED BLOOD COUNT 3.82 X10e (3.90-5.30); RED CELL DISTRIBUTION WIDTH 18.8 % (11.0-15.5); WHITE BLOOD COUNT 4.2 X10e3 (4.0-10.5)
[2016-10-21 14:19] LABS: DIFF IND NO
[2016-10-21 14:34] LABS: BILIRUBIN, DIRECT 0.3 mg/dL (0.0-0.2); BILIRUBIN,TOTAL 1.3 mg/dL (0.2-2.0); BUN/CREATININE RATIO 7.27; CALCIUM SERUM 8.9 mg/dL (8.4-10.2); CREATININE SERUM 3.3 mg/dL (0.6-1.4); GLOM FILT RATE Estimated 14.1 mL/min (>60); POTASSIUM 3.6 mmol/L (3.5-5.1); PROTEIN TOTAL SERUM 5.7 g/dL (6.0-8.3)
[2016-10-21 15:17] LABS: INR 2.2; PARTIAL THROMBOPLASTIN TIME 39.1 SECONDS (23.5-31.3)
[2016-10-21 15:18] LABS: PROTHROMBIN TIME (PATIENT) 24.3 SECONDS (10.0-11.7)
[2016-10-21] MEDS ORDERED: COUMADIN PO (17:34)
[2016-10-21] MEDS ORDERED: SENSIPAR60 MG PO (17:35)
[2016-10-21] MEDS ORDERED: ZOFRAN PO (17:36)
[2016-10-22 14:29] LABS: HEMATOCRIT 34.3 % (35.0-45.0); HEMOGLOBIN 10.8 gm/dL (12.0-16.0); MEAN CELL VOLUME 95.7 FL (83-96); MEAN CORPUSCULAR HEMOGLOBIN 30.2 PG (28-34); MEAN CORPUSCULAR HGB CONC 31.5 g/dL (30-36); RED BLOOD COUNT 3.58 X10e (3.90-5.30); RED CELL DISTRIBUTION WIDTH 18.2 % (11.0-15.5); WHITE BLOOD COUNT 3.8 X10e3 (4.0-10.5)
[2016-10-22 14:39] LABS: INR 1.3; PROTHROMBIN TIME (PATIENT) 14.3 SECONDS (10.0-11.7)
[2016-12-27] MEDS ORDERED: SPIRIVA18 MCG INH
[2016-12-27] MEDS ORDERED: NEURONTIN100 MG PO
[2016-12-27] MEDS ORDERED: VANCOMYCIN HCL1 G1 PO (00:02)
[2016-12-27] MEDS ORDERED: MYNEPHRON CAPSUL1 MG PO (00:04)
[2016-12-27] MEDS ORDERED: ALKA-SELTZER G1 EACH PO (23:57)
[2016-12-27] MEDS ORDERED: FLORANEX GRANU1 EACH PO (23:59)
[2016-12-27] MEDS ORDERED: ACID CONTROLLER20 MG PO (23:59)
[2016-12-27] MEDS ORDERED: EPOGEN2000 UNIT/ ID (23:59)
[2016-12-28] MEDS ORDERED: LOTRONEX1 MG PO (15:41)
[2016-12-28] MEDS ORDERED: AMIODARONE HCL200 MG PO (15:42)
[2016-12-28] MEDS ORDERED: LANTUS100 U/ML SUBQ (15:43)
[2016-12-28] MEDS ORDERED: COMBIVENT RESPIM4 GM INH (15:44)
== END 2016-10-22 16:51 | disposition home or self-care (01) ==
LOC: CED 12:48 → CEDOF 15:45 → CED 16:15 → CEDOF 23:10 → C5B 23:10
PROVIDERS: Emergency Medicine; Family Medicine
DX: K57.31 Diverticulosis of large intestine without perforation or abscess with bleeding (principal); K62.5 Hemorrhage of anus and rectum; T45.515A Adverse effect of anticoagulants, initial encounter; E10.22 Type 1 diabetes mellitus with diabetic chronic kidney disease; N18.6 End stage renal disease; Z99.2 Dependence on renal dialysis; E10.319 Type 1 diabetes mellitus with unspecified diabetic retinopathy without macular edema; Z79.4 Long term (current) use of insulin; D63.1 Anemia in chronic kidney disease; D69.6 Thrombocytopenia, unspecified; I25.10 Atherosclerotic heart disease of native coronary artery without angina pectoris; I48.2 Chronic atrial fibrillation; Z79.01 Long term (current) use of anticoagulants; J44.9 Chronic obstructive pulmonary disease, unspecified; I50.22 Chronic systolic (congestive) heart failure
CPT/HCPCS: 36415; 36430; 71010; 80048; 80076; 82947; 85025; 85027; 85610; 85730; 86850; 86900; 86901; 94640; 94760; 96365; 96366; 96376; 99285; G0378; J3430; P9059

== ENCOUNTER 2016-12-10 01:27 | Inpatient (IN) | payer MEDICARE, OTHER ==
[~2016-12-10] VITALS: Ht 165.1 cm; Wt 44.5 kg
--- NOTE | ~2016-12-10 | CO ---
Unit #: [id number] #: [id number] Patient: WOJCIECH CHAMBERS [id number] [place], [place] [address] [id number] I MR#: [id number] NAME: WOJCIECH CHAMBERS ROOM: 242 Age: 61 Sex: F Admission Date: 12/11/2016 : 1955 Attending Physician: Mark Aragon M.D. Primary Care Physician: Mark Aragon M.D. CONSULTATION REPORT REASON FOR CONSULT Right middle lobe lung mass. HISTORY OF PRESENT ILLNESS Ms. Chambers is a 61-year-old white female, who has not followed in the office. She has a history of COPD, coronary artery disease, chronic systolic congestive heart failure, chronic atrial fibrillation, severe MR, end-stage renal disease on hemodialysis, diabetes, and history of lower GI bleed. She was admitted here for weakness. She had a chest CT scan done, which showed a 2.0 x 1.7 irregular mass in the right middle lobe laterally. She had marked cardiomegaly with extensive coronary calcifications and small bilateral pleural effusions and atelectasis, extensive emphysematous and chronic appearing bilateral interstitial disease. She had been seen in my office and scheduled for a CT-directed biopsy of the mass in the right middle lobe after all CT scans have been reviewed from [facility], where it was noted. An appointment was made for fine-needle aspirate. She did not show for her biopsy last week. We were notified and were in the process of calling her to reschedule. PAST MEDICAL HISTORY Significant for the above-mentioned problems including, 1. End-stage renal disease, on hemodialysis, followed by Dr. June. 2. 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 3. Coronary artery disease with severe LV dysfunction and severe mitral regurgitation and chronic atrial fibrillation. 4. Hypertension. 5. Hyperlipidemia. 6. Pulmonary hypertension. 7. COPD. 8. Obstructive sleep apnea. PAST SURGICAL HISTORY Bilateral cataract surgery, tonsillectomy, partial hysterectomy, bilateral knee replacements, left AV shunt. ALLERGIES Actos, Fosamax, glipizide, Lescol, Lipitor, Niaspan, Pravachol, prednisone, Prevacid, Relafen, Welchol, Zocor, and ampicillin. HOME MEDICINES Amiodarone, Combivent, Symbicort, Lorcet, Klonopin, Lantus, Lopressor, Lomotil, melatonin, probiotics, Zyrtec, Sensipar, Zofran, Jayson aspirin, and Megace. Unit #: [id number] #: [id number] Patient: WOJCIECH CHAMBERS REVIEW OF SYSTEMS Otherwise unremarkable. PHYSICAL EXAMINATION GENERAL: White female, in no distress, very fatigued and weak. VITAL SIGNS: Blood pressure is 132/60, pulse 77, respiratory rate 16, afebrile. HEENT: Normocephalic, atraumatic. Pupils are equal, round, and reactive. Sclerae nonicteric. Nasal passages patent. Posterior pharynx somewhat dry. NECK: Supple. Trachea midline. LUNGS: Reveal diminished breath sounds bilaterally. Prolonged expiratory phase. CARDIAC: Irregular rate and rhythm. Could not appreciate murmur, rub, or gallop. ABDOMEN: Nontender. Bowel sounds present. EXTREMITIES: Without clubbing, cyanosis, or edema. DIAGNOSTIC STUDIES LABORATORY RESULTS: Reviewed. BMP, unremarkable. Glucose 48, BUN 42, creatinine 4.9, CO2 is 27. BNP is greater than 4971. White blood cell count 6600, hematocrit 39.6, platelet count of 112,000. IMPRESSION Right middle lobe lung mass, enlarging in size, currently followed in office. Recommended a fine-needle aspirate for diagnosis. The patient did not show up for fine-needle aspirate at [facility]. I discussed re-biopsying here or at [facility]. She wishes to have that done at [facility]. We will rediscuss the issue with her in a.m. We would like to get everything done here as soon as possible, so that it will get taken care of. Dictated by... Armen Landis M.D. RYAN/ailyn TD: 12/13/2016 08:21 JOB #: [id number] CONSULTATION REPORT Page 1 of 1 X Armen Landis MD CONSULTATION REPORT
--- NOTE | ~2016-12-10 | CR72 ---
[facility] A Service of [facility] RADIOLOGY TEXT RESULTS PATIENT: WOJCIECH JIANG LOCATION: A 242-01 : [birth year] UNIT #: [id number] AGE: [address]: Trae Joseph MD SEX: F ORDER DR: [id number] [facility] [address] [place], [place] [address] [id number] I MR#: [id number] Acc #: [id number] NAME: WOJCIECH JIANG : 1955 SEX: F STUDY DATE/TIME: 12/10/2016 2:14 UNIT: [facility] ROOM: [facility] STUDY DESCRIPTION: CR Chest Single View Portable Attending Physician: Trae Joseph M.D. Ordering Physician: Juan Alberto Guzmán M.D. Primary Care Physician: Mark Aragon M.D. MEDICAL IMAGING REPORT This report is preliminary unless electronic signature is present EXAM Portable chest. HISTORY Weakness and shortness of air and congestion for 3 days. FINDINGS There are moderately extensive diffuse bilateral nodular interstitial infiltrates, very similar to 10/21/2016. Stable cardiac enlargement. Probable small left pleural effusion is likely stable. New small right pleural effusion. Remainder of the chest is stable. Dictated by... Dylon Naylor M.D. THIS IS AN ELECTRONICALLY VERIFIED REPORT Dylon Naylor M.D. at 12/11/2016 4:48 AM DFL/zayra TD: 12/10/2016 23:40 JOB #: [id number] MEDICAL IMAGING REPORT Page 1 of 1 COPY
--- NOTE | ~2016-12-10 | EKG ---
PATIENT: WOJCIECH JIANG UNIT #: [id number] Ventricular Rate: 109 BPM Atrial Rate: 288 BPM QRS Duration: 122 ms Q-T Interval: 366 ms QTC Calculation(Bezet): 492 ms Calculated R Rosie: 128 degrees Calculated T Rosie: -45 degrees Diagnosis Line: Atrial flutter with variable A-V block Diagnosis Line: Right axis deviation Diagnosis Line: Non-specific intra-ventricular conduction delay Diagnosis Line: ST and T wave abnormality, consider inferolateral Diagnosis Line: ischemia Diagnosis Line: Abnormal ECG Diagnosis Line: When compared with ECG of 13-MAY-2013 07:03, Diagnosis Line: QRS axis Shifted right Diagnosis Line: Nonspecific T wave abnormality has replaced Diagnosis Line: inverted T waves in Anterior leads Diagnosis Line: Confirmed by PANTERA COOL MD ([id number]) on Diagnosis Line: 12/11/2016 4:57:18 PM INTERPRETING MD: BERHANE
--- NOTE | ~2016-12-10 | DS ---
Unit #: [id number] #: [id number] Patient: WOJCIECH JIANG [id number] [address] [place], [place] [address] [id number] I MR#: [id number] NAME: WOJCIECH JIANG ROOM: 242 Age: 61 Sex: F Admission Date: 12/11/2016 : 1955 Discharge Date: 12/13/2016 Attending Physician: Mark Aragon M.D. Primary Care Physician: Mark Aragon M.D. DISCHARGE SUMMARY DISCHARGE DISPOSITION Patient being transferred to [facility] under Dr. Hardy. HOSPITAL SUMMARY The patient is a 61-year-old white female with history of endstage renal disease - on hemodialysis Sunday, Sunday and Sunday, coronary artery disease, chronic atrial fibrillation, COPD, chronic systolic CHF, severe mitral regurgitation, chronic thrombocytopenia, diabetes mellitus with nephropathy, retinopathy, diverticulosis, recurrent lower GI bleeding. She presented to the emergency room with one week of progressive weakness. Apparently she was having OT and PT therapy at home but had become progressively worse despite this. They were concerned that she had some issues with cervical spine disease because of increasing upper extremity weakness. She has had no recent falls. Denied any pain. She is unable to ambulate, control things with her hands, like fine details - buttons, zippers, pens, etc., and was admitted. On admission the patient was awake, alert, oriented x3. Pulse was 115, respirations 18, blood pressure 144/84, O2 sat was 100% on 2 liters. She had ngksnqzo-skev-addd-distal weakness with 4/5 strength in all extremities. Sensation was decreased, sensation light touch in her feet and hands consistent with peripheral neuropathy. Cardiac enzymes were normal. CMP was normal except for a BUN of 29, a creatinine of 4, GFR of 11, albumin 2.8. EKG showed atrial flutter with a rapid ventricular response, right axis deviation, nonspecific IV CD, nonspecific ST-T abnormality, and the patient was admitted. HOSPITAL COURSE The patient was admitted to a med/surg bed. Additional labs were sent, including a CPK that was within normal limits. T4, TSH were within normal limits. B12 and folic acid were within normal limits. BNP was greater than 4,971. Chest x-ray showed moderate, extensive, diffuse bilateral nodular interstitial infiltrates, similar to 10/21/2016. Stable cardiomegaly. Probable small left pleural effusion. New small "left" pleural effusion. Patient was seen by Dr. June, underwent hemodialysis on the and the . Was seen by Dr. Oliver, who was concerned about cervical myelopathy, possible Guillain-[place] syndrome. She was found on CT scan of the chest, ordered by Dr. June, to have a right middle lobe mass, which was irregular and 2 x 1.7 cm. Attempted biopsy was unsuccessful, as the patient was too short of breath. The angle and size of the lesion were too dangerous to attempt biopsy. MRI of the cervical spine showed multilevel canal stenosis, most pronounced at C3-4, C4-5, lesser degree at C5-6 and C6-7 without abnormal cord signal at any level. Nonspecific T2 changes in the danny related to small vessel disease. Stool for C. diff. Unit #: [id number] #: [id number] Patient: WOJCIECH JIANG was sent and was positive for colitis, started on Flagyl. At this point, Dr. Oliver is recommending she be transferred to [facility] for further evaluation, including an EMG, nerve conduction velocity, which we do not have available here at [facility], as well as neurosurgery consult, which we do not have available here. She will need to be followed by nephrology, as well as neurosurgery consult. She currently on a constant carb diet. CURRENT MEDS 1. Albuterol Atrovent unit dose Mini-Neb 4 times daily. 2. Pulmicort 0.5 mg per nebulizer q.12. 3. Perforomist 20 mcg per nebulizer q.12. 4. Her amiodarone has been discontinued since she is in chronic A fib/flutter. 5. She receives 2,000 units of heparin with hemodialysis. 6. She is on Florastor 1 tab daily. 7. Zofran 4 mg q.6 hours p.r.n. 8. Claritin 10 mg daily. 9. Megace 800 mg b.i.d. 10. Klonopin 0.5 mg daily and 0.5 b.i.d. p.r.n. for anxiety. 11. Lopressor 50 mg p.o. b.i.d. 12. NovoLog on a sliding scale a.c. and h.s. 13. Flagyl 500 mg t.i.d. 14. Pepcid 20 mg b.i.d. 15. Melatonin 10 mg q.h.s. 16. Aspirin 81 mg daily. 17. [place]xton 5/325 one q.6 hours p.r.n. for pain. 18. PhosLo 667 mg 3 times daily with meals. 19. [place] Nasal [place] p.r.n. 20. Nephrocaps 1 p.o. daily. 21. Vitamin D 1,000 units daily. FINAL DIAGNOSES 1. Progressive weakness of unknown etiology. 2. Severe cervical canal stenosis. 3. Clostridium difficile colitis. 4. Right middle lobe nodule suspicious for underlying malignancy. 5. Endstage renal disease, on hemodialysis. 6. Chronic atrial fibrillation/flutter, intolerant of anticoagulation therapy due to recurrent lower gastrointestinal bleeding secondary to diverticulitis. 7. Chronic systolic congestive heart failure. 8. Chronic obstructive pulmonary disease. 9. History of tobacco use. 10. Thrombocytopenia. 11. Severe mitral regurgitation. 12. Chronic thrombocytopenia. CONSULTANTS 1. Dr. June. 2. Dr. Oliver. 3. Dr. Landis. PROCEDURES Hemodialysis on 12/11 and 12/13. Unit #: [id number] #: [id number] Patient: WOJCIECH JIANG Dictated by... Aj Dodd/marcos TD: 12/13/2016 16:01 JOB #: [id number] DISCHARGE SUMMARY Page 1 of 1 X Mark Aragon MD X DISCHARGE SUMMARY
--- NOTE | ~2016-12-10 | MR32 ---
[facility] A Service of [facility] & [facility] RADIOLOGY TEXT RESULTS PATIENT: WOJCIECH JIANG LOCATION: C2A 242-01 : [birth year] UNIT #: [id number] AGE: [address]: Mark Aragon MD SEX: F ORDER DR: [id number] [facility] [address] [place], [place] [address] [id number] I MR#: [id number] Acc #: [id number] NAME: WOJCIECH JIANG : 1955 SEX: F STUDY DATE/TIME: 12/11/2016 13:42 UNIT: C2A ROOM: 242 STUDY DESCRIPTION: MR Cervical Wo Contrast Attending Physician: Mark Aragon M.D. Ordering Physician: Chirag Oliver M.D. Primary Care Physician: Mark Aragon M.D. MRI CENTER REPORT This report is preliminary unless electronic signature is present. EXAM Cervical spine MRI no contrast 12/11/2016 TECHNIQUE Routine cervical spine MRI without contrast. HISTORY 1 week history of weakness. FINDINGS There is some degenerative marrow signal, particularly around the C3-C4 disc but bone marrow signal is otherwise normal. Cord signal appears normal. The posterior fossa and its contents are normal, except for nonspecific white matter changes in the danny, possibly related to small vessel disease. The paraspinous tissues are unremarkable. At C2-C3, there is no substantial canal or foraminal stenosis. At C3-C4, a broad disc bulge and probably at least moderate cord compression without abnormal cord signal. There is probably mild bilateral foraminal stenosis. At C4-C5, there is disc and endplate change and canal stenosis and probably mild cord compression, without abnormal cord signal, and moderate bilateral foraminal stenosis. At C5-C6, there is disc and osteophyte complex and fffv-nl-kzvimaps left side predominant cord compression with mild right and moderate or jusjuvll-fh-xfcwoq left foraminal compromise. At C6-C7, disc and endplate change causes canal stenosis with mild cord compression. No abnormal cord signal. Minimal right and bknt[facility]fl[facility]dwmkjxzy [facility] RADIOLOGY TEXT RESULTS PATIENT: WOJCIECH JIANG LOCATION: C2A 242-01 : [birth year] UNIT #: [id number] AGE: [address]: Mark Aragon MD SEX: F ORDER DR: left foraminal stenosis. At C7-T1, there is minimal canal narrowing without cord compression, and there is no foraminal stenosis. IMPRESSION 1. Multilevel canal stenosis, most pronounced at C3-C4 and C4-C5 but seen to a lesser degree of C5-C6 and C6-C7 without abnormal cord signal at any level. See above for details. 2. Nonspecific T2 signal changes in the danny are likely related to small vessel disease. Dictated by... Ant Haque M.D. THIS IS AN ELECTRONICALLY VERIFIED REPORT Ant Haque M.D. at 12/15/2016 4:09 PM TEV/pcl TD: 12/11/2016 21:48 JOB #: [id number] MRI CENTER REPORT Page 1 of 1 COPY
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
--- NOTE | ~2016-12-10 | HP ---
Unit #: [id number] #: [id number] Patient: WOJCIECH JIANG [id number] [address] [place], [place] [address] [id number] I MR#: [id number] NAME: WOJCIECH JIANG ROOM: 242 Age: 61 Sex: F Admission Date: 12/10/2016 : 1955 Attending Physician: Trae Joseph M.D. Primary Care Physician: Mark Argaon M.D. HISTORY AND PHYSICAL HISTORY OF PRESENT ILLNESS The patient is a 61-year-old white female, endstage renal disease on hemodialysis Sunday, Sunday and Sunday, coronary artery disease, chronic atrial fibrillation, chronic obstructive pulmonary disease, chronic systolic congestive heart failure, severe mitral regurgitation, thrombocytopenia, type 1 diabetes mellitus with nephropathy and retinopathy, diverticulosis, recurrent lower GI bleeding. The patient presented to the emergency room with one week of weakness. Apparently she has occupational therapy and physical therapy consults to come to her house, but they did not show up for three weeks. They finally showed up, but it was too late and the patient ended up in the emergency room. There here workup was essentially unremarkable. She is unable to ambulate and is admitted for further evaluation. The patient denies any pain, any recent falls, any recent change in medicines other than a nebulizer, which would not explain her symptoms. She really has generalized weakness, but again is unable to ambulate and has trouble controlling things with her hands, like fine details, buttons, zippers, pins, etc. PAST MEDICAL HISTORY 1. Endstage renal disease on hemodialysis Sunday, Sunday and Sunday per Dr. June. 2. 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 3. Coronary artery disease. Severe left ventricular dysfunction. Severe mitral regurgitation. 4. Hypertension. 5. Hyperlipidemia. 6. Pulmonary hypertension. 7. Chronic obstructive pulmonary disease. 8. Obstructive sleep apnea syndrome. PAST SURGICAL HISTORY 1. Bilateral cataracts. 2. Tonsillectomy. 3. Partial hysterectomy. 4. Bilateral knee replacements. 5. Left AV shunt. SOCIAL HISTORY Prior smoker. Nondrinker. Disabled. No street drug use. . ALLERGIES Multiple allergies including Actos, ampicillin, Fosamax, glipizide, Lescol, Lipitor, Niaspan, Pravachol, prednisone, Prevacid, Relafen, Welchol, Zocor and ampicillin. Unit #: [id number] #: [id number] Patient: WOJCIECH JIANG PREADMISSION MEDICATIONS 1. Amiodarone 200 mg daily. 2. Combivent 1 puff q.4 h. p.r.n. shortness of air. 3. Lorcet 5/325 mg 1 q.6 h. p.r.n. pain. 4. Klonopin 0.5 mg at nighttime. 5. Lantus 10 units subcutaneous at nighttime. 6. Lopressor 50 mg p.o. every other day. 7. Lomotil 1 mg daily. 8. Melatonin 10 mg at nighttime. 9. ProAir p.r.n. 10. Probiotics 1 daily. 11. Zyrtec 10 mg daily. 12. Sensipar 60 mg daily. 13. Zofran 4 mg q.6 h. p.r.n. 14. Jayson aspirin 81 mg daily. 15. Megace 20 mg p.o. b.i.d. PHYSICAL EXAMINATION GENERAL: She is awake, alert and oriented times three, in no acute distress. VITALS: Afebrile. Pulse 115, respiratory rate 18, blood pressure 144/84, O2 saturations 100% on 2 liters. HEENT: Unremarkable. NECK: Supple without jugular venous distension, bruits, adenopathy or thyromegaly. CHEST: Diffusely decreased breath sounds with a few bibasilar rales. HEART: Irregularly irregular rate and rhythm without any S3 gallop. She has a systolic murmur best appreciated at the apex. ABDOMEN: Soft, nondistended and nontender with positive bowel sounds. EXTREMITIES: No clubbing, cyanosis or edema. /RECTAL: Deferred. NEUROLOGIC: Grossly intact. Strength is 4/5 in all four extremities. She has decreased sensation to light touch in her feet and hands, consistent with peripheral neuropathy. DIAGNOSTIC STUDIES IMAGING: Chest x-ray reportedly shows no active disease. LABORATORY: Cardiac enzymes normal times two sets. CMP normal except for (1) 147, BUN 29, creatinine 4, GFR 11, albumin 2.8. CARDIOVASCULAR: EKG a flutter with variable ventricular response at 109 beats per minute. Right axis deviation. Nonspecific IV CD. Nonspecific ST-T abnormality. ASSESSMENT 1. Weakness, immobilization syndrome with questionable etiology, likely multifactorial. 2. Endstage renal disease on hemodialysis. 3. Chronic atrial fibrillation flutter. Intolerant of anticoagulation therapy. 4. History of recurrent lower GI bleeding secondary to diverticulosis. 5. Chronic systolic congestive heart failure. 6. Chronic obstructive pulmonary disease. 7. History of tobacco use. 8. Thrombocytopenia. 9. 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 Unit #: [id number] #: [id number] Patient: WOJCIECH JIANG 10. Severe mitral regurgitation. PLAN Check CPK level. Consult neurology. Consult nephrology. Occupational therapy and physical therapy consults. Discontinue amiodarone since the patient is in chronic atrial fibrillation. This may be adding some to her weakness. Resume home medications. Lesser ProAir and Combivent and use duo-nebs instead. Further evaluation pending results of the above. Dictated by Aj Dodd/lisa TD: 12/10/2016 12:17 JOB #: [id number] HISTORY AND PHYSICAL Page 1 of 1 X Mark Aragon MD X HISTORY AND PHYSICAL
--- NOTE | ~2016-12-10 | XA231 ---
[facility] A Service of [facility] RADIOLOGY TEXT RESULTS PATIENT: WOJCIECH JIANG LOCATION: [facility] 242-01 : 53 UNIT #: [id number] AGE: [address]: Mark Aragon MD SEX: F ORDER DR: [id number] [facility] [address] [place], [place] [address] [id number] MR#: [id number] #: [id number] NAME: WOJCIECH JIANG : 1955 SEX: F STUDY DATE/TIME: 12/12/2016 14:20 UNIT: [facility] ROOM: [facility] STUDY DESCRIPTION: XA Consult Attending Physician: Mark Aragon M.D. Ordering Physician: Armen Landis M.D. Primary Care Physician: Mark Aragon M.D. MEDICAL IMAGING REPORT This report is preliminary unless electronic signature is present EXAM Consultation for lung biopsy CLINICAL HISTORY Right lung mass, lung biopsy requested. PROCEDURE Patient was brought to the department and chest CT, chart and labs reviewed. However, on interviewing the patient, she was obviously sufficiently short of breath and unable to hold her breath for more than a few seconds at a time. Given the size and location of the lesion, biopsy is not felt feasible at this time. IMPRESSION Patient with a relatively small relatively lower lung nodule unable to hold her breath for any period of time, and biopsy is not felt feasible at this time. Dictated by... Ant Haque M.D. THIS IS AN ELECTRONICALLY VERIFIED REPORT Ant Haque M.D. at 12/15/2016 4:06 PM VIPUL/ayde TD: 12/14/2016 06:56 JOB #: [id number] MEDICAL IMAGING REPORT Page 1 of 1 COPY
--- NOTE | ~2016-12-10 | A ---
[facility] Nutrition Therapy DATE: 12/11/16 Patient: WOJCIECH JIANG Physician: FABRICE [facility] Room/Bed: [address] [place] [address], Zip: [place] [address] Admit Date: 12/11/16 Date of : 51 Height: 5 5 Weight: 98 44.45 NUTRITIONAL ASSESSMENT: REASON: Low (Pt not actually a low BMI, but required nutrition assessment d/t weight loss) 61 yo female admitted for decreased strength PMH: ESRD on HD, DM, COPD, CHF, CAD, HTN, HLD, [place], recurrent lower GIB Anthropometrics: Ht: 65" Wt: 136 lbs (62 kg) BMI: 22.7 Labs: Gluc 48 BUN 42 Creat 2.9 Alb 2.8 Phos 6.2 Accuchecks 53-201 GFR 8.8 BNP 4971 Meds: Megace oral, Phoslo, vitamin D, nephrocaps, novolog, pepcid I/O & Bowel function: , last BM 12/10 Skin Integrity: Bruising scattered, Scabs BLE Generalized edema Diet: Consistent carbohydrate Assessment: Chart reviewed, events noted. RD screened patient for low BMI; however, this pt likely does not weigh [address] Per bedscale, the pt weighs 62 kg (136 lbs), which is more consistent with past weights and RD/ gaming cage cashier. When asked about her weight, pt reports she has definitely lost weight and states she is increasingly weak with poor intake. Pt is unsure about weight loss, but says "Someone told me I weigh [address] informed RN of incorrect weight. Pt does appear to be weak and has loose skin indicating weight loss. Pt also reports that "Food gets stuck" and that she has a hard time swallowing d/t this. Pt and her report that she has been seen by ASSISTANT PROFESSOR OF MUSIC in the past at a [place]; however, they are unable to provide any additional information. RD spoke with RN, who reports that the pt has not had any swallowing issues when she observes her eating. Pt does not like Nepro supplements, however, she is agreeable to Magic Cup TID. RD will order. Dx: Unplanned weight loss RT poor appetite, deconditioning AEB pt reported poor intake and weight loss of unknown amount. Intervention: 1. Consistent carbohydrate diet 2. Magic Cup TID (sugar free) [facility] Nutrition Therapy DATE: 12/11/16 Patient: WOJCIECH JIANG Physician: FABRICE Address: [address] Room/Bed: [address] [place] [address], Zip: [place] [address] Admit Date: 12/11/16 Date of : [birth year] Height: 5 5 Weight: 98 44.45 Monitoring, Evaluation and Goals: 1. Oral intake; consume 50-100% of meals 2. Improve labs; gluc, BUN, creat, phos 3. Weight; preserve lean body mass, prevent further weight loss Recommendations: 1. Add 2 gram Na+ diet restriction d/t the pt's PMH, edema. 2. Magic Cup TID (sugar free orange vanilla) for supplemental nutrition. 3. Encourage adequate nutritional intake as needed. 4. Consider ASSISTANT PROFESSOR OF MUSIC evaluation and/or GI consult as appropriate, as the pt reports having swallowing difficulty and food "getting stuck". Pt is at mild-moderate nutritional risk. RD will follow hospital course per protocol. Respectfully, ANDRES GOMEZ RD, LD [facility] cc: client file
--- NOTE | ~2016-12-10 | CO ---
Unit #: [id number] #: [id number] Patient: ROSEANNA CHAMBERS [id number] [facility]. [place], [place] [address] [id number] Oma MR#: [id number] NAME: ROSEANNA CHAMBERS ROOM: 242 Age: 61 Sex: F Admission Date: 12/11/2016 : 1955 Attending Physician: Mark Aragon M.D. Primary Care Physician: Mark Aragon M.D. Consultation Date: 12/10/2016 CONSULTATION REPORT REASON FOR CONSULTATION Renal failure. Thank you very much for asking me to see this patient in consultation. HISTORY OF PRESENT ILLNESS Ms. Roseanna Chambers is a 61-year-old female, who has a history of end-stage renal disease, is on hemodialysis under my care every Sunday, Sunday, and Sunday with her last dialysis on Sunday who called me last night complaining of severe weakness, she states she could not walk, she has fallen several times, she had a hard time holding onto things including even beverages, and at which time, I asked her to come to the emergency room, worried that she could have some sort of neurological event versus hyperkalemia, etc. Although, her potassium was normal. She was admitted for severe weakness and workup is underway. She continues to say she has chronic shortness of breath which has not changed, and severe weakness. No fevers or chills. No cough or hemoptysis. She continues to have persistent diarrhea for the last 8 months. The patient was here in the hospital in 10/2016, where she was with GI bleed, it was felt to be possibly upper GI bleed and her Coumadin was stopped for atrial fibrillation. She states she has been coming into dialysis under her dry weight. I believe when I was seeing her several weeks ago, she was just unable to the eat, and at which time, I put her on some Megace. PAST MEDICAL HISTORY History of end-stage renal disease, on hemodialysis every Sunday, Sunday, Sunday; history of COPD; history of GI bleed; history of pulmonary hypertension; history of mitral regurgitation; history of atrial fibrillation, again Coumadin stopped secondary to bleeding; history of diabetes mellitus; history of anemia; history of atherosclerotic coronary artery disease; history of hyperlipidemia; she is status post bilateral knees; status post cataracts; status post partial hysterectomy. SOCIAL HISTORY She is . Previous smoker, none now. No alcohol. ALLERGIES Include penicillin. MEDICATIONS Her medications at home included amiodarone 200 mg a day, inhalers Lorcet, Klonopin, insulin, Lopressor 50 mg every other day, melatonin, probiotics, multivitamin a day, Renvela two with each meal, vitamin D daily, Zantac b.i.d., Zyrtec 10 mg a day, Sensipar 60 mg a day, aspirin 81 mg a day, and Unit #: [id number] #: [id number] Patient: ROSEANNA CHAMBERS SHELLY Dumont b.i.dHunter REVIEW OF SYSTEMS As mentioned in the HPI. Denies any severe abdominal pain. Again, chronic diarrhea. She only makes a little bit of urine, no burning. She has had some intermittent mild swelling in her legs. She denies any recent seizures, strokes, or skin rashes. No chest pain, chest heaviness, or palpitations. Again, shows some chronic shortness of breath. She denies any severe headaches or dizziness. FAMILY HISTORY Noncontributory. PHYSICAL EXAMINATION GENERAL: She is alert and oriented. VITAL SIGNS: Her T-max is 98.2, pulse is 115 to 123, systolic blood pressure 130 to 144 over 70s to 90s. HEENT: She is normocephalic and atraumatic. Pupils are equal, round, and reactive to light. Extraocular muscles are intact. Hearing appears to be normal. Her mouth is clear. No erythema. No exudates. NECK: Supple. No JVD. No adenopathy. CARDIAC: She has irregular rhythm without a rub. No S3 or S4. LUNGS: She has bilateral rales at the bases and a few bilateral rhonchi. ABDOMEN: Bowel sounds positive. Nontender. Soft. EXTREMITIES: She has some mild lower extremity swelling. She has a tunneled catheter in her upper chest. : Deferred. SKIN: She does have some bruising which she states are from her falls, she has at home intermittently. DIAGNOSTIC STUDIES IMAGING STUDIES: Chest x-ray per verbal report, report on the ER sheet says no acute process, but I do not have the official report and I have not looked at it. LABORATORY RESULTS: Her BUN is 29, creatinine 4.0, sodium is 139, potassium 4.8, bicarb is 29, calcium is 8.5, albumin is 2.8. Liver function tests are normal. CPK is 41. Hemoglobin 11.6, white count 5900, platelets 109,000 which has been chronic. ASSESSMENT AND PLAN 1. End-stage renal disease. We will plan on dialyzing her tomorrow. We will challenge her fluid, dry weight a little bit. We will follow electrolytes. 2. Weakness. I agree with Neurology consult and further workup. I agree with stopping amiodarone. 3. Anemia, hemoglobin is better off Coumadin. 4. History of atrial fibrillation. She does have an increased rate. We will go ahead and increase her Lopressor. Again, the patient's amiodarone appears to have been discontinued. 5. Chronic obstructive pulmonary disease. The patient does have some rales and rhonchi and COPD, again while she was on amiodarone as well. I am going to go ahead and do a CT scan of her chest without IV contrast. 6. Chronic diarrhea. We will check Clostridium difficile. We will discontinue Sensipar and Renvela since both can potentially cause diarrhea. 7. Diabetes mellitus per primary. Unit #: [id number] #: [id number] Patient: ROSEANNA CHAMBERS Dictated by.Aj Carias/ailyn TD: 12/11/2016 15:03 JOB #: [id number] CONSULTATION REPORT Page 1 of 1 X Markel June MD X CONSULTATION REPORT
--- NOTE | ~2016-12-10 | CT57 ---
[facility] A Service of [facility] RADIOLOGY TEXT RESULTS PATIENT: WOJCIECH JIANG LOCATION: [facility] 242-01 : [birth year] UNIT #: [id number] AGE: [address]: Mark Aragon MD SEX: F ORDER DR: [id number] [facility] [address] [place], [place] [address] [id number] MR#: [id number] #: [id number] NAME: WOJCIECH JIANG : 1955 SEX: F STUDY DATE/TIME: 12/10/2016 14:16 UNIT: [facility] ROOM: [facility] STUDY DESCRIPTION: CT Chest Wo Cont Attending Physician: Mark Aragon M.D. Ordering Physician: Petr June M.D. Primary Care Physician: Mark Aragon M.D. MEDICAL IMAGING REPORT This report is preliminary unless electronic signature is present EXAM CT chest without contrast, 12/10/2016 HISTORY 61-year-old female with shortness of air for 2 days. History of COPD. COMPARISON None TECHNIQUE Helical scan performed through the chest without IV contrast. Coronal and sagittal reformatted images. This CT exam was performed with one or more of the following radiation dose reduction techniques: automatic exposure control, adjustment of mA and/or kV according to patient size, and iterative reconstruction. FINDINGS Thoracic aorta normal in course and caliber with extensive atherosclerotic calcification. Marked cardiomegaly. No pericardial effusion. Extensive coronary artery calcifications. Small bilateral pleural effusions with bibasilar atelectasis/infiltrate. Extensive chronic-appearing emphysematous and interstitial changes throughout both lungs. There is an irregular mass in the right middle lobe measuring 2.0 x 1.7 cm. This is highly concerning for malignancy. Scanning through the upper abdomen demonstrates bilateral renal atrophy consistent with end-stage renal disease. Extensive vascular calcifications are noted. No acute bony abnormality. IMPRESSION 1. Irregular mass in the right middle lobe measuring 2.0 x 1.7 cm. This [facility] A Service of [facility] RADIOLOGY TEXT RESULTS PATIENT: WOJCIECH JIANG LOCATION: [place] [address] : [birth year] UNIT #: [id number] AGE: [address]: Mark Aragon MD SEX: F ORDER DR: is highly concerning for malignancy. 2. Marked cardiomegaly with extensive coronary artery calcifications and atherosclerotic calcification of the thoracic aorta. 3. Small bilateral pleural effusions with bibasilar atelectasis/infiltrate. 4. Extensive emphysematous and chronic-appearing bilateral interstitial changes. Dictated by... Pancho Mcdonald M.D. THIS IS AN ELECTRONICALLY VERIFIED REPORT Pancho Mcdonald M.D. at 12/11/2016 10:39 AM MENDEZ/nicholas TD: 12/11/2016 08:08 JOB #: [id number] MEDICAL IMAGING REPORT Page 1 of 1 COPY
[~2016-12-10 01:27] MED LIST changes: +SENSIPAR60 MG PO; +ZOFRAN PO
[2016-12-10 02:52] LABS: BASOPHIL# 0.1 X10e3 (0-0.3); EOSINOPHIL# 0.1 X10e3 (0-0.7); EOSINOPHIL% 1.4 % (0.0-7.0); HEMATOCRIT 36.9 % (35.0-45.0); HEMOGLOBIN 11.6 gm/dL (12.0-16.0); LYMPHOCYTE# 0.3 X10e3 (1.0-3.5); LYMPHOCYTE% 5.4 % (17.0-45.0); MEAN CELL VOLUME 92.4 FL (83-96); MEAN CORPUSCULAR HEMOGLOBIN 29.1 PG (28-34); MEAN CORPUSCULAR HGB CONC 31.5 g/dL (30-36); MEAN PLATELET VOLUME 8.6 FL (6.5-11.5); MONOCYTE# 0.6 X10e3 (0-1.0); MONOCYTE% 10.2 % (3.0-12.0); NEUTROPHIL# 4.8 X10e3 (1.5-7.1); PLATELET COUNT 109 X10e3 (140-420); RED BLOOD COUNT 3.99 X10e (3.90-5.30); RED CELL DISTRIBUTION WIDTH 17.4 % (11.0-15.5); WHITE BLOOD COUNT 5.9 X10e3 (4.0-10.5)
[2016-12-10 02:53] LABS: DIFF IND NO
[2016-12-10 02:55] LABS: POC - CKMB 2.3 ng/mL (0.0-7.9)
[2016-12-10 02:56] LABS: POC - TROPONIN <0.05 ng/mL (<=0.05)
[2016-12-10 03:16] LABS: ALBUMIN SERUM 2.8 g/dL (3.5-5.0); BILIRUBIN, DIRECT 0.3 mg/dL (0.0-0.2); BILIRUBIN,INDIRECT 0.5 mg/dL (0.0-0.9); BILIRUBIN,TOTAL 0.8 mg/dL (0.2-2.0); BUN/CREATININE RATIO 7.25; CALCIUM SERUM 8.5 mg/dL (8.4-10.2); GLOM FILT RATE Estimated 11.2 mL/min (>60); POTASSIUM 4.8 mmol/L (3.5-5.1); PROTEIN TOTAL SERUM 5.5 g/dL (6.0-8.3)
[2016-12-10 05:05] LABS: POC - CKMB 2.2 ng/mL (0.0-7.9); POC - TROPONIN <0.05 ng/mL (<=0.05)
[2016-12-10] MEDS ORDERED: BAYER CHEWABLE81 MG PO (09:13)
[2016-12-10] MEDS ORDERED: MEGESTROL400 MG/12 PO (09:13)
[2016-12-10 16:00] LABS: THYROID STIMULATING HORMONE 4.16 uIU/ml (0.34-5.60)
[2016-12-10 16:07] LABS: FREE THYROXIN (T4) 1.21 ng/dL (0.58-1.64)
[2016-12-10 16:12] LABS: FOLATE (FOLIC ACID) >23.3 ng/mL (>5.8)
[2016-12-11 07:17] LABS: BASOPHIL# 0.1 X10e3 (0-0.3); BASOPHIL% 1.4 % (0-2.5); EOSINOPHIL# 0.2 X10e3 (0-0.7); EOSINOPHIL% 2.5 % (0.0-7.0); HEMATOCRIT 39.6 % (35.0-45.0); HEMOGLOBIN 12.6 gm/dL (12.0-16.0); LYMPHOCYTE# 0.5 X10e3 (1.0-3.5); LYMPHOCYTE% 7.6 % (17.0-45.0); MEAN CELL VOLUME 91.9 FL (83-96); MEAN CORPUSCULAR HEMOGLOBIN 29.3 PG (28-34); MEAN CORPUSCULAR HGB CONC 31.9 g/dL (30-36); MEAN PLATELET VOLUME 8.9 FL (6.5-11.5); MONOCYTE# 0.6 X10e3 (0-1.0); MONOCYTE% 8.7 % (3.0-12.0); NEUTROPHIL# 5.2 X10e3 (1.5-7.1); NEUTROPHIL% 79.8 % (40-75); PLATELET COUNT 112 X10e3 (140-420); RED BLOOD COUNT 4.31 X10e (3.90-5.30); RED CELL DISTRIBUTION WIDTH 17.6 % (11.0-15.5); WHITE BLOOD COUNT 6.6 X10e3 (4.0-10.5)
[2016-12-11 07:26] LABS: DIFF IND NO
[2016-12-11 07:42] LABS: BUN/CREATININE RATIO 8.57; CALCIUM SERUM 9.1 mg/dL (8.4-10.2); CREATININE SERUM 4.9 mg/dL (0.6-1.4); GLOM FILT RATE Estimated 8.8 mL/min (>60); MAGNESIUM 2.7 mg/dL (1.6-3.0); PHOSPHOROUS 6.2 mg/dL (2.5-4.6)
[2016-12-12 06:52] LABS: BUN/CREATININE RATIO 6.82; CALCIUM SERUM 8.9 mg/dL (8.4-10.2); CREATININE SERUM 4.1 mg/dL (0.6-1.4); GLOM FILT RATE Estimated 10.9 mL/min (>60); POTASSIUM 4.8 mmol/L (3.5-5.1)
[2016-12-13 05:38] LABS: HEMATOCRIT 40.1 % (35.0-45.0); HEMOGLOBIN 12.8 gm/dL (12.0-16.0); MEAN CELL VOLUME 91.1 FL (83-96); MEAN CORPUSCULAR HGB CONC 31.8 g/dL (30-36); MEAN PLATELET VOLUME 8.7 FL (6.5-11.5); RED BLOOD COUNT 4.4 X10e (3.90-5.30); RED CELL DISTRIBUTION WIDTH 17.1 % (11.0-15.5); WHITE BLOOD COUNT 5.4 X10e3 (4.0-10.5)
[2016-12-13 05:47] LABS: PARTIAL THROMBOPLASTIN TIME 23.6 SECONDS (23.5-31.3); PROTHROMBIN TIME (PATIENT) 11.2 SECONDS (10.0-11.7)
[2016-12-13 06:08] LABS: BUN/CREATININE RATIO 7.08; CALCIUM SERUM 9.6 mg/dL (8.4-10.2); CREATININE SERUM 4.8 mg/dL (0.6-1.4); POTASSIUM 5.4 mmol/L (3.5-5.1)
[2016-12-27] MEDS ORDERED: NEURONTIN100 MG PO
[2016-12-27] MEDS ORDERED: SPIRIVA18 MCG INH
[2016-12-27] MEDS ORDERED: VANCOMYCIN HCL1 G1 PO (00:02)
[2016-12-27] MEDS ORDERED: MYNEPHRON CAPSUL1 MG PO (00:04)
[2016-12-27] MEDS ORDERED: ALKA-SELTZER G1 EACH PO (23:57)
[2016-12-27] MEDS ORDERED: ACID CONTROLLER20 MG PO (23:59)
[2016-12-27] MEDS ORDERED: FLORANEX GRANU1 EACH PO (23:59)
[2016-12-27] MEDS ORDERED: EPOGEN2000 UNIT/ ID (23:59)
[2016-12-28] MEDS ORDERED: LOTRONEX1 MG PO (15:41)
[2016-12-28] MEDS ORDERED: AMIODARONE HCL200 MG PO (15:42)
[2016-12-28] MEDS ORDERED: LANTUS100 U/ML SUBQ (15:43)
[2016-12-28] MEDS ORDERED: COMBIVENT RESPIM4 GM INH (15:44)
== END 2016-12-13 23:00 | DRG 947 ==
LOC: CED 01:27 → CEDOF 06:15 → CED 06:21 → CEDOF 06:21 → C2A 06:21 → CEDOF 08:03 → C2A 08:03 → CEDOF 12-11 15:30 → C2A 12-13 23:00
PROVIDERS: Emergency Medicine; Internal Medicine; Internal Medicine Nephrology; Psychiatry & Neurology Neurology
PROC: 30233N1 Transfusion of Nonautologous Red Blood Cells into Peripheral Vein, Percutaneous Approach (ICD-10-PCS; principal; 2016-12-11)
PROC: 5A1D60Z (ICD-10-PCS; 2016-12-11)
DX: R53.1 Weakness (principal); N18.6 End stage renal disease; I13.2 Hypertensive heart and chronic kidney disease with heart failure and with stage 5 chronic kidney disease, or end stage renal disease; E10.21 Type 1 diabetes mellitus with diabetic nephropathy; E10.42 Type 1 diabetes mellitus with diabetic polyneuropathy; D69.6 Thrombocytopenia, unspecified; A04.7 Enterocolitis due to Clostridium difficile; E44.1 Mild protein-calorie malnutrition; Z68.1 Body mass index [BMI] 19.9 or less, adult; I50.22 Chronic systolic (congestive) heart failure; E10.319 Type 1 diabetes mellitus with unspecified diabetic retinopathy without macular edema; I48.2 Chronic atrial fibrillation; Z99.2 Dependence on renal dialysis; I25.10 Atherosclerotic heart disease of native coronary artery without angina pectoris; I34.0 Nonrheumatic mitral (valve) insufficiency; I27.2 Other secondary pulmonary hypertension; G47.33 Obstructive sleep apnea (adult) (pediatric); R91.1 Solitary pulmonary nodule; J44.9 Chronic obstructive pulmonary disease, unspecified; Z98.42 Cataract extraction status, left eye; Z98.41 Cataract extraction status, right eye; Z90.711 Acquired absence of uterus with remaining cervical stump; Z96.653 Presence of artificial knee joint, bilateral; Z88.1 Allergy status to other antibiotic agents; Z88.8 Allergy status to other drugs, medicaments and biological substances; D64.9 Anemia, unspecified; M48.02 Spinal stenosis, cervical region
CPT/HCPCS: 36415; 71010; 71250; 72141; 76140; 80048; 80076; 82550; 82553; 82607; 82746; 82947; 83735; 83880; 84100; 84439; 84443; 84484; 85025; 85027; 85610; 85730; 87493; 92610; 93005; 94640; 94664; 94760; 97110; 97162; 97166; 99285; G8978-GP; G8979-GP; G8987-GO; G8988-GO; G8989-GO; G8996-GN; G8997-GN; G8998-GN; J1815; J2250; J3010